=== PATIENT | female | born 1975 | race Caucasian/White ===

== ENCOUNTER → 2020-04-07 11:34 | Outpatient (REF) | payer OTHER, SELFPAY ==
--- NOTE | 2020-04-07 11:47 | ECG_ITS ---
Test Reason : CP Blood Pressure : / mmHG Vent. Rate : 088 BPM Atrial Rate : 088 BPM P-R Int : 170 ms QRS Dur : 084 ms QT Int : 366 ms P-R-T Axes : 049 011 039 degrees QTc Int : 442 ms Normal sinus rhythm Normal ECG No previous ECGs available Referred By: Victor Hugo Sams Electronically Signed By:JOSE BONNER MD
--- NOTE | 2020-04-07 12:01 | XR_ITS ---
EXAMINATION: XR CHEST CLINICAL INFORMATION: Preprocedural examination. COMPARISON: None TECHNIQUE: 2 views of the chest were obtained. FINDINGS: No significant abnormality is noted involving the heart, lungs, mediastinum, bony thorax or soft tissues. XR/XR chest 2V IMPRESSION: Unremarkable chest examination.
== END ==
LOC: HO.CARD 11:34
PROVIDERS: PCP Internal Medicine; Visit Provider Surgery
DX: Z01.818 Encounter for other preprocedural examination (principal); E11.9 Type 2 diabetes mellitus without complications
CPT/HCPCS: 71046; 93005

== ENCOUNTER → 2020-04-08 08:31 | Outpatient (BNVA) | payer OTHER, SELFPAY | PROVIDERS: PCP Internal Medicine; Referring Provider Internal Medicine; Visit Provider Surgery | DX: E66.01 Morbid (severe) obesity due to excess calories (principal); Z68.41 Body mass index [BMI] 40.0-44.9, adult; E11.65 Type 2 diabetes mellitus with hyperglycemia; E78.5 Hyperlipidemia, unspecified; I10 Essential (primary) hypertension; Z79.4 Long term (current) use of insulin; Z71.3 Dietary counseling and surveillance | CPT/HCPCS: 99212 ==

== ENCOUNTER → 2020-04-24 08:10 | Outpatient (BNVA) | payer OTHER, SELFPAY | PROVIDERS: PCP Internal Medicine; Visit Provider Surgery | DX: Z76.89 Persons encountering health services in other specified circumstances (principal) ==

== ENCOUNTER 2020-04-30 14:05 | Outpatient (REF) | payer OTHER, SELFPAY ==
--- NOTE | 2020-04-30 14:10 | MM_ITS ---
EXAMINATION: MM SCREENING DIGITAL BREAST TOMOSYNTHESIS, BILATERAL CLINICAL INFORMATION: Screening. Asymptomatic. No prior mammography. Age 45. No known family history breast cancer. The lifetime risk of breast cancer based on the Tyrer-Cuzick Model is 12%. COMPARISON: None (current study represents initial baseline exam). TECHNIQUE: Digital breast tomosynthesis is performed in both the craniocaudal and mediolateral oblique views along with computer-aided detection (CAD). Synthesized 2D images are generated from the tomosynthesis. Additional left MLO view is provided. FINDINGS: There are scattered areas of fibroglandular density (ACR BI-RADS breast composition Category b). There are no significant masses, abnormal calcifications, or other abnormalities. The skin contours are smooth. MM/MM tomosynthesis screening BI IMPRESSION: No mammographic evidence of malignancy. ASSESSMENT: BI-RADS 1: Negative RECOMMENDATION: Routine annual mammography screening. This patient's information was entered into a reminder system with a target due date for their next mammogram.
== END 2020-04-30 14:06 | disposition home or self-care (01) ==
LOC: HO.MAMMO 14:05
PROVIDERS: PCP Internal Medicine; Visit Provider Internal Medicine
DX: Z12.31 Encounter for screening mammogram for malignant neoplasm of breast (principal)
CPT/HCPCS: 77063; 77067

== ENCOUNTER 2020-05-05 14:05 | Outpatient (REF) | payer OTHER, SELFPAY ==
[2020-05-06 03:36] LABS: CT PCR NOT DETECTED (Not Detect.); NG PCR NOT DETECTED (Not Detect.)
[2020-05-11 23:34] LABS: HPV 16 RNA NOT DETECTED (NOT DETECTED); HPV mRNA E6/E7 rflx Detected (Not Detected)
== END 2020-05-05 14:06 | disposition home or self-care (01) ==
LOC: HO.LAB 14:05
PROVIDERS: PCP Internal Medicine; Visit Provider Advanced Practice Midwife
DX: Z01.419 Encounter for gynecological examination (general) (routine) without abnormal findings (principal); N90.60 Unspecified hypertrophy of vulva; Z11.51 Encounter for screening for human papillomavirus (HPV)
CPT/HCPCS: 87491; 87591; 87624; 87625; 88141; 88142

== ENCOUNTER → 2020-05-15 08:01 | Outpatient (BNVA) | payer OTHER, SELFPAY | PROVIDERS: PCP Internal Medicine; Referring Provider Internal Medicine; Visit Provider Surgery | DX: Z76.89 Persons encountering health services in other specified circumstances (principal) ==

== ENCOUNTER 2020-05-19 14:05 | Outpatient (REF) | payer OTHER, SELFPAY ==
--- NOTE | 2020-05-19 14:09 | US_ITS ---
EXAMINATION: US pelvic, LIMITED/FOLLOW UP CLINICAL INFORMATION: Unspecified hypertrophy of the vulva COMPARISON: None TECHNIQUE: Grayscale and color imaging of the labia using a linear transducer FINDINGS: The soft tissues in the right labial region appear more prominent than the left. No focal mass or fluid collection is seen. No increased vascularity is seen. US/US pelvic limited IMPRESSION: Prominent soft tissues on the right compared to the left. No mass or fluid collection seen.
== END 2020-05-19 14:06 | disposition home or self-care (01) ==
LOC: HO.US 14:05
PROVIDERS: PCP Internal Medicine; Visit Provider Advanced Practice Midwife
DX: N90.60 Unspecified hypertrophy of vulva (principal)
CPT/HCPCS: 76857

== ENCOUNTER → 2020-05-29 15:01 | Outpatient (BNVA) | payer OTHER, SELFPAY | PROVIDERS: PCP Internal Medicine; Visit Provider Advanced Practice Midwife | DX: Z76.89 Persons encountering health services in other specified circumstances (principal) ==

== ENCOUNTER → 2020-06-17 08:10 | Outpatient (BNVA) | payer OTHER, SELFPAY | PROVIDERS: PCP Internal Medicine; Visit Provider Surgery | DX: Z76.89 Persons encountering health services in other specified circumstances (principal) ==

== ENCOUNTER → 2020-06-24 08:43 | Outpatient (BNVA) | payer OTHER, SELFPAY | PROVIDERS: PCP Internal Medicine; Visit Provider Nurse Practitioner Gerontology | DX: Z76.89 Persons encountering health services in other specified circumstances (principal) ==

== ENCOUNTER 2020-07-06 10:13 | Outpatient (REF) | payer OTHER, SELFPAY | END 2020-07-06 10:14 | disposition home or self-care (01) | LOC: HO.LAB 10:13 | PROVIDERS: PCP Internal Medicine; Visit Provider Obstetrics & Gynecology | DX: R87.610 Atypical squamous cells of undetermined significance on cytologic smear of cervix (ASC-US) (principal); R87.810 Cervical high risk human papillomavirus (HPV) DNA test positive | CPT/HCPCS: 57454; 88305 ==

== ENCOUNTER → 2020-07-29 08:29 | Outpatient (BNVA) | payer OTHER, SELFPAY | PROVIDERS: PCP Internal Medicine; Visit Provider Surgery ==

== ENCOUNTER 2020-08-12 17:39 | Emergency (ER) | payer OTHER, SELFPAY ==
[2020-08-12 18:21] VITALS: BP 222/90; PULSE 78; RESP 18; TEMP 36.4; O2SAT 100; BMI 34.8
--- NOTE | 2020-08-12 18:23 | ECG_ITS ---
Test Reason : HIGH BP Blood Pressure : / mmHG Vent. Rate : 091 BPM Atrial Rate : 091 BPM P-R Int : 150 ms QRS Dur : 084 ms QT Int : 374 ms P-R-T Axes : 027 005 010 degrees QTc Int : 460 ms Normal sinus rhythm Normal ECG When compared with ECG of 07-APR-2020 11:49, Nonspecific T wave abnormality now evident in Inferior leads Referred By: Generic ED Physician Electronically Signed By:QUINN ROPER
[2020-08-12 19:07] LABS: Basophils Absolute Auto 0.1 X10*3/uL (0.0-0.2); Basophils Percent Auto 0.4 % (0-2); Eosinophils Absolute Auto 0.8 X10*3/uL (0.0-0.4); Eosinophils Percent Auto 4.5 % (0-4); Hematocrit 34.7 % (37-47); Hemoglobin 10.3 g/dl (12.0-16.0); Imm Gran Abs Auto 0.07 X10*3/uL (0.00-0.03); Imm Gran Pct Auto 0.4 % (0.0-0.4); Lymphocytes Percent Auto 37.4 % (20-40); MANUAL DIFF FLAG SCAN; Mean Corpuscular HGB Conc 29.7 g/dl (31.0-35.0); Mean Corpuscular Hemoglobin 21.8 pg (27.0-33.0); Mean Corpuscular Volume 73.4 fL (80-98); Mean Platelet Volume 8.9 fL (9.4-12.3); Monocytes Absolute Auto 0.9 X10*3/uL (0.1-1.2); Monocytes Percent Auto 5.2 % (2-11); Neutrophils Absolute Auto 8.8 X10*3/uL (2.0-8.3); Neutrophils Percent Auto 52.1 % (45-73); Platelet Count 520 X10*3/uL (160-400); Red Blood Count 4.73 X10*6/uL (4.20-5.50); Red Cell Distribution Width 16.4 % (11.0-16.0); SCAN SMEAR FLAG 1; White Blood Count 16.9 X10*3/uL (4.8-10.8)
[2020-08-12 19:08] VITALS: BP 107/72; PULSE 88; RESP 12; O2SAT 95
[2020-08-12 19:09] LABS: Lymphocytes Absolute Auto 6.3 X10*3/uL (1.2-4.9)
[2020-08-12 19:19] LABS: Glucose, Whole Blood 139 mg/dL (60-115)
[2020-08-12 19:28] LABS: Anion Gap 14 (12-20); Blood Urea Nitrogen 14 mg/dL (9-16); Calcium 9.4 mg/dL (8.4-10.2); Carbon Dioxide 24 mmol/L (22-29); Chloride 100 mmol/L (96-108); Creatinine Clr Calc Pharmacy 95.3; Estimated Glomerular Filt Rate > 60; Glucose Random 126 mg/dL (60-115); Potassium 3.5 mmol/L (3.3-5.1); Sodium 134 mmol/L (135-145)
[2020-08-12 19:36] LABS: SLIDE REVIEW VERIFIED
--- NOTE | 2020-08-12 19:43 | ED_ITS ---
HPI - General Adult General Chief complaint: General Medical Stated complaint: HIGH BP Time Seen by Provider: 08/12/20 19:43 Source: patient Mode of arrival: ambulatory Limitations: no limitations History of Present Illness HPI narrative: Very pleasant 45-year-old female presenting ambulatory via triage she has a history of PCOS, hypothyroidism, dyslipidemia, diabetes, hypertension and obesity and surgical history of right hand surgery as well as cholecystectomy she states she has been checking her blood pressure at home were past several days and she has had readings that her high for her as high as 170/90 and she is on triple antihypertensive therapy however couple of weeks ago she did not get a chance to fill when the prescriptions and could be the reason why her blood pressure is elevated. States she was overall doing okay did have slight headache and given the elevated readings and this slight headache she called her primary care doctor and she was told to come to the emergency room. States the headache is very mild and typical in nature for her and there is no associated photophobia as or dizziness or chest pain or shortness of breath. There is no recent illness. She does report that she checks her blood pressure with our for machine and her readings have been somewhat fluctuating or past couple days. Additionally, upon arrival she had protocol EKG and lab work done in the triage and while she was getting her blood drawn she became diaphoretic and sweaty and had a near syncopal episode while sitting in the lab chair. She does report lack of p.o. intake prior to coming here today. Otherwise there was no prodromal symptoms or any chest pain, shortness of breath, abdominal pain, nausea, vomiting, lower extremity swelling. Onset (ago): day(s) Radiation: non-radiation Exacerbating factors: none Treatments prior to arrival: none Related Data Home Medications Medication Instructions Recorded Confirmed albuterol sulfate 90 mcg/actuation INHALATION 03/25/20 07/01/20 aerosol inhaler blood sugar diagnostic #10 ea 03/25/20 07/01/20 clonazepam 1 mg tablet 1 mg PO BEDTIME PRN 03/25/20 07/01/20 duloxetine 30 mg capsule,delayed 30 mg PO DAILY 03/25/20 07/01/20 release duloxetine 60 mg capsule,delayed 60 mg PO DAILY 03/25/20 07/01/20 release lancets 28 gauge #100 ea 03/25/20 07/01/20 lisdexamfetamine 60 mg capsule 60 mg PO QAM 03/25/20 07/01/20 metformin 1,000 mg tablet 1,000 mg PO BID 03/25/20 07/01/20 omeprazole 20 mg capsule,delayed 20 mg PO BID 03/25/20 07/01/20 release pen needle, diabetic 32 gauge x #50 ea 03/25/20 07/01/20 5/32 aripiprazole 20 mg tablet 25 mg PO QAM tab 06/24/20 07/01/20 Previous Rx's Medication Instructions Recorded fenofibrate micronized 134 mg 134 mg PO DAILY #90 cap 03/23/20 capsule omega-3 fatty acids 1,000 mg 2,000 mg PO BID 30 Days #120 cap 03/25/20 capsule atenolol 50 mg-chlorthalidone 25 1 tab PO DAILY #90 tab 04/20/20 mg tablet benazepril 40 mg tablet 40 mg PO DAILY #90 tab 04/20/20 montelukast 10 mg tablet 10 mg PO DAILY #90 tab 04/20/20 levothyroxine 88 mcg tablet 88 mcg PO DAILY #90 tab 05/23/20 insulin degludec 200 unit/mL (3 100 unit SUBCUT DAILY 30 Days #15 06/14/20 mL) subcutaneous pen ml insulin lispro 100 unit/mL See Rx Instructions SUBCUT TID 30 06/24/20 subcutaneous pen Days #30 ml norethindrone acetate 1 mg-ethinyl 1 tab PO DAILY #63 tab 06/24/20 estradiol 20 mcg tablet simvastatin 20 mg tablet 20 mg PO BEDTIME #90 tab 06/24/20 amlodipine 5 mg tablet 5 mg PO DAILY #90 tab 07/02/20 liraglutide 0.6 mg/0.1 mL (18 mg/3 1.8 mg SUBCUT DAILY #9 ml 07/12/20 mL) subcutaneous pen injector cyanocobalamin (vitamin B-12) 1,000 mcg PO DAILY #30 tab 07/13/20 1,000 mcg tablet,extended release flash glucose sensor 1 ea TOPICAL .COMPLEX 28 Days #2 07/14/20 kit Allergies Allergy/AdvReac Type Severity Reaction Status Date / Time Sulfa (Sulfonamide Allergy Unknown HIVES Verified 07/06/20 10:26 Antibiotics) [SULFA (SULFONAMIDE ANTIBIOTICS)] Review of Systems Review of Systems: Constitutional: No Weight loss, No Fever, No Chills, No Night Sweats, No Fatigue, No Malaise ENT/Mouth: No Hearing loss, No Ear Pain, No Nasal Congestion, No Sinus Pain, No Hoarseness, No sore throat, No Rhinorrhea, No Swallowing Difficulty Eyes: No Eye Pain, No Swelling, No Redness, No Foreign Body, No Discharge, No Vision Changes Cardiovascular: No Chest Pain, No SOB, No Dyspnea on Exertion, No Orthopnea, No Edema, No Palpitations Respiratory: No Cough, No Sputum, No Wheezing, No Dyspnea Gastrointestinal: No Nausea, No Vomiting, No Diarrhea, No Constipation, No abdominal Pain, No Hematochezia, No Melena Genitourinary: no irregular bleeding, No Dysuria, No Urinary Frequency, No Hematuria, No Urinary Incontinence, No Urgency, No Flank Pain, No Urinary Flow Changes, No Hesitancy Musculoskeletal: No joint pain, No Myalgias, No Joint Swelling Skin: No Skin Lesions, No rash Neuro: No Weakness, No Numbness, No Paresthesias, No Loss of Consciousness, No Dizziness, No Headache Psych: No Social Issues Heme/Lymph: No Bruising, No Bleeding,No Lymphadenopathy Endocrine: No Polyuria, No Polydipsia, No Temperature Intolerance Yes all other systems are reviewed and are negative Neurologic: Reports Abnormal speech present [facility] Past Medical History Medical History BMI 40.0-44.9, adult Depression Diabetes mellitus with hyperglycemia Dyslipidemia Enlargement of labia Essential hypertension Hypertriglyceridemia Hypothyroidism PCOS (polycystic ovarian syndrome) Potential exposure to STD Surgical History Hx of cholecystectomy Hx of hand surgery Hx of sinus surgery Morbid (severe) obesity due to excess calories Family History Family History Father CVD (cardiovascular disease) Diabetes type 2, uncontrolled Alzheimer's dementia Mother HTN (hypertension) Brother No problems noted. Social History Social History Household Members: Other Alcohol intake: never Smoking Status: Never smoker Advance Directives: No Advance Directives Information Provided: Yes Gender identity: female Physical Exam Vital Signs: Vital Signs: Last Vital Signs Temp 97.6 F 08/12/20 18:21 Pulse 88 08/12/20 19:08 Resp 12 08/12/20 19:08 BP 107/72 08/12/20 19:08 Pulse Ox 95 08/12/20 19:08 Body Mass Index 34.8 Reviewed Const: Other: Says sitting up agree to me with a smile. General: cooperative and healthy appearing; No acute distress or intoxicated appearing Nutritional Appearance: average body habitus Orientation/consciousness: patient oriented x3 HENMT: Head: Yes normal to inspection Ears: hearing grossly normal bilaterally Eyes: General: appearance normal, both eyes and all related structures Visual Pack: normal visual pack by confrontation Alignment and Position: alignment normal Pupils: Equal, round and reactive pupils present Neck: Neck: Yes normal visual inspection, Yes no meningeal signs, No positive Brudzinski's sign, No positive Kernig's sign and No tender Thyroid: Thyroid normal Chest: Chest palpation & inspection: normal inspection of the chest Resp: Effort & Inspection: normal respiratory effort Auscultation: clear to auscultation bilaterally Cardio: Jugular venous distension: no JVD Rhythm: regular rhythm Heart sounds: S1 normal heart sound present and S2 normal heart sound present GI: Inspection: Yes normal to inspection Palpation (GI): Soft to palpation Percussion: Yes normal to percussion Auscultation: normal bowel sounds : General: Yes no CVA tenderness Back/Spine/Pelvis: Back: no CVA tenderness Skin: General skin exam: no rashes or lesions noted Neuro: General: patient oriented x3, moves all extremities, Normal light touch and pain sensation, no meningeal signs, no focal motor deficits and CN's II-XI intact bilaterally Cranial nerves: Yes CN's II-XII intact bilaterally, Yes Facial sensation intact/muscles of mastication intact, Yes Intact sense of smell present, Yes Equal, round and reactive pupils present, Yes Normal accommodation reflex present, Yes Bilaterally intact EOM present, Yes Nystagmus not present, Yes Normal facial strength present, Yes Midline tongue present, Yes Normal gag reflex present and Yes Ability to bilaterally elevate shoulders present Cognition (Neuro): normal cognition Speech: Abnormal speech present Gait exam (Neuro): Normal gait present Motor exam (neuro): 5/5 motor strength present throughout Sensory Exam: Normal double simultaneous stimulation for sensation Extrem: General: Yes normal to inspection Psych: Appearance: well kempt NIH Stroke Scale Internal: Initial- Upon Arrival Level of Consciousness: Alert Level of Consciousness Questions: Answers both questions correctly Level of Consciousness Commands: Performs both tasks correctly Best Gaze: Normal Visual: No visual loss Facial Palsy: Normal Motor Arm (Right): No drift Motor Arm (Left): No drift Motor Leg (Right): No drift Motor Leg (Left): No drift Limb Ataxia: Absent Sensory: Normal Best Language: No aphasia Dysarthia: Normal Extinction and Inattention: No abnormality Score: 0 Course Reevaluation(s) Reevaluation #1: Patient was brought in from the waiting room directly after having the blood work and having a near syncopal episode in the stretcher did have 1 low reading and subsequently blood pressure readings have been 130 over 70s, her initial blood pressure was documented very elevated at 222/90 however due to her body over this it was done on her forearm likely with the inappropriate cuff size and given that the manual blood pressure on the bilateral upper extremities as well as now the bedside monitor are all correlating with a blood pressure of 130s over 70s. At this point she is res ting comfortably without any focal complaints or neurological findings. Labs EKG in process. Reevaluation #2: There was significant artifact on the initial EKG repeat EKG nondiagnostic. Her labs are overall stable. She does not offer any medical com plaints and has been observed in the ED for almost 3 hours with consistently stable pressure. At this time I will defer on altering any of the blood pressure medication regiment which she is on amlodipine, Kyree and beta-zaid. Proper home blood pressure techniques were reviewed with her, she will keep a log of her blood pressures and follow up closely with her primary care doctor for recheck and further pharmacological management and alternation if needed. Ambulatory steady gait. Medical Decision Making MDM Narrative Medical decision making narrative: In review 45-year-old female presenting ambulatory via triage she has a history of PCOS, hypothyroidism, dyslipidemia, diabetes, hypertension and obesity and surgical history of right hand surgery as well as cholecystectomy initially presenting for elevated blood pressure with light headache which is typical for her comes by the direction of her primary care doctor and having a vasovagal near-syncope in the phlebotomy chair from having blood work drawn. Patient has been observed in the ED for several hours she has not had any focal neurological findings or specific complaints. Her blood pressure readings have been stable with systolic in the high 130s and diastolic in the 70s. She has not required any intervention for blood pressure management here. Her workup is overall unrevealing she does have at baseline leukocytosis chronically which she knows about however no signs of acute infectious pathology at this time. Her blood pressure readings at home can be multifactorial i.e. forearm blood pressure, technique, as well as medication compliance. This was reviewed with her in detail as well as proper blood pressure technique. Will be discharged home with close follow up with her primary care. Lab Data Result diagrams: 08/12/20 18:59 08/12/20 18:59 Labs: Lab Results 08/12/20 08/12/20 08/12/20 Range/Units 18:59 18:59 19:09 WBC 16.9 H (4.8-10.8) X10*3/uL RBC 4.73 (4.20-5.50) X10*6/uL Hgb 10.3 L (12.0-16.0) g/dl Hct 34.7 L (37-47) % MCV 73.4 L (80-98) fL MCH 21.8 L (27.0-33.0) pg MCHC 29.7 L (31.0-35.0) g/dl RDW 16.4 H (11.0-16.0) % Plt Count 520 H (160-400) X10*3/uL MPV 8.9 L (9.4-12.3) fL Immature Gran % (Auto) 0.4 (0.0-0.4) % Neut % (Auto) 52.1 (45-73) % Lymph % (Auto) 37.4 (20-40) % [place] % (Auto) 5.2 (2-11) % Eos % (Auto) 4.5 H (0-4) % Baso % (Auto) 0.4 (0-2) % Lymph # (Auto) 6.3 H (1.2-4.9) X10*3/uL [place] # (Auto) 0.9 (0.1-1.2) X10*3/uL Eos # (Auto) 0.8 H (0.0-0.4) X10*3/uL Baso # (Auto) 0.1 (0.0-0.2) X10*3/uL Abs Immat Gran (auto) 0.07 H (0.00-0.03) X10*3/uL Absolute Neuts (auto) 8.8 H (2.0-8.3) X10*3/uL Absolute Nucleated RBC 0.000 (0.0-0.012) X10*3/uL Nucleated RBC % (auto) 0.0 (0.0-0.2) /100WBC Smear Tech's Comments VERIFIED Sodium 134 L (135-145) mmol/L Potassium 3.5 (3.3-5.1) mmol/L Chloride 100 (96-108) mmol/L Carbon Dioxide 24 (22-29) mmol/L Anion Gap 14 (12-20) BUN 14 (9-16) mg/dL Creatinine 0.88 (0.5-1.4) mg/dL Estim Creat Clear Calc 95.3 Estimated GFR > 60 POC Glucose 139 H (60-115) mg/dL Random Glucose 126 H (60-115) mg/dL Calcium 9.4 (8.4-10.2) mg/dL Troponin I High Sens (<3.5-17.0) ng/L 08/12/20 Range/Units 19:15 WBC (4.8-10.8) X10*3/uL RBC (4.20-5.50) X10*6/uL Hgb (12.0-16.0) g/dl Hct (37-47) % MCV (80-98) fL MCH (27.0-33.0) pg MCHC (31.0-35.0) g/dl RDW (11.0-16.0) % Plt Count (160-400) X10*3/uL MPV (9.4-12.3) fL Immature Gran % (Auto) (0.0-0.4) % Neut % (Auto) (45-73) % Lymph % (Auto) (20-40) % [place] % (Auto) (2-11) % Eos % (Auto) (0-4) % Baso % (Auto) (0-2) % Lymph # (Auto) (1.2-4.9) X10*3/uL [place] # (Auto) (0.1-1.2) X10*3/uL Eos # (Auto) (0.0-0.4) X10*3/uL Baso # (Auto) (0.0-0.2) X10*3/uL Abs Immat Gran (auto) (0.00-0.03) X10*3/uL Absolute Neuts (auto) (2.0-8.3) X10*3/uL Absolute Nucleated RBC (0.0-0.012) X10*3/uL Nucleated RBC % (auto) (0.0-0.2) /100WBC Smear Tech's Comments Sodium (135-145) mmol/L Potassium (3.3-5.1) mmol/L Chloride (96-108) mmol/L Carbon Dioxide (22-29) mmol/L Anion Gap (12-20) BUN (9-16) mg/dL Creatinine (0.5-1.4) mg/dL Estim Creat Clear Calc Estimated GFR POC Glucose (60-115) mg/dL Random Glucose (60-115) mg/dL Calcium (8.4-10.2) mg/dL Troponin I High Sens < 3.5 (<3.5-17.0) ng/L ECG Data Interpretation: 1. Normal sinus rhythm Rate 91 No ectopy Significant artifact and tremor When compared with ECG of 07-APR-2020 11:49, ?Nonspecific T wave abnormality now evident in Inferior leads 2. Repeat EKG Normal sinus rhythm Rate 70 Significantly less artifact without any evidence of T-wave abnormalities No significant change from a 08/01 19. Discharge Plan Discharge Clinical Impression: Hypertension, Vasovagal near syncope Patient Disposition: Home, Self-Care Instructions: Hypertension (ED), Near Syncope (ED) Additional Instructions: At this time your blood pressure has normalized without intervention in the ED Please check your blood pressure at the same time on a daily basis and keep log Preferred method for checking blood pressure is to have your both feet touch in the ground and done on the upper portion of the arm while your arm is across her chest in a relaxed manner. Do not talk or move all the blood pressure is being taking by the machine. The forearm she can give false elevated readings. Please return if any concerns or worsening symptoms otherwise follow-up as planned Thank you Prescriptions: No Action fenofibrate micronized 134 mg capsule 134 mg PO DAILY Qty: 90 RF: 3 atenolol-chlorthalidone 50-25 mg tablet 1 tab PO DAILY Qty: 90 RF: 3 benazepril 40 mg tablet 40 mg PO DAILY Qty: 90 RF: 3 montelukast 10 mg tablet 10 mg PO DAILY Qty: 90 RF: 3 levothyroxine 88 mcg tablet 88 mcg PO DAILY Qty: 90 RF: 3 insulin degludec 200 unit/mL (3 mL) insulin pen 100 unit subcut DAILY 30 Days Qty: 15 RF: 1 simvastatin 20 mg tablet 20 mg PO BEDTIME Qty: 90 RF: 3 norethindrone ac-eth estradiol [07/01 (21)] 1-20 mg-mcg tablet 1 tab PO DAILY Qty: 63 RF: 3 amlodipine 5 mg tablet 5 mg PO DAILY Qty: 90 RF: 3 liraglutide [Victoza 3-German] 0.6 mg/0.1 mL (18 mg/3 mL) pen injector 1.8 mg subcut DAILY Qty: 9 RF: 5 cyanocobalamin (vitamin B-12) 1,000 mcg tablet extended release 1,000 mcg PO DAILY Qty: 30 RF: 6 flash glucose sensor [FreeStyle Amberly 14 Day Sensor] Kit 1 ea topical .COMPLEX 28 Days Qty: 2 RF: 11 duloxetine 30 mg capsule,delayed release(DR/EC) 30 mg PO DAILY RF: 0 metformin 1,000 mg tablet 1,000 mg PO BID RF: 0 clonazepam 1 mg tablet 1 mg PO BEDTIME PRNRF: 0 Vyvanse 60 mg capsule 60 mg PO QAM RF: 0 duloxetine 60 mg capsule,delayed release(DR/EC) 60 mg PO DAILY RF: 0 (DME) pen needle, diabetic 32 gauge x 5/32 needle See Rx Instructions ea subcut DAILY Qty: 50 RF: 0 albuterol sulfate 90 mcg/actuation HFA aerosol inhaler inhalation RF: 0 (DME) lancets 28 gauge misc See Rx Instructions lancet topical QID Qty: 100 RF: 0 omeprazole 20 mg capsule,delayed release(DR/EC) 20 mg PO BID RF: 0 (DME) FreeStyle Lite Strips Strip See Rx Instructions strip .ROUTE .MEDSUPPLY Qty: 10 RF: 0 omega-3 fatty acids 1,000 mg capsule 2,000 mg PO BID 30 Days Qty: 120 RF: 3 aripiprazole 20 mg tablet 25 mg PO QAM RF: 0 insulin lispro [Humalog KwikPen Insulin] 100 unit/mL insulin pen See Rx Instructions subcut TID 30 Days Qty: 30 RF: 5 Referrals: Maria Esther Real MD [Primary Care Provider] - 1 week Interventions: ED Discharge Assessment Last Done: 08/12/20 21:04 Discharge Date/Time: 08/12/20 21:12
[2020-08-12 19:48] LABS: Troponin-I High Sensitivity < 3.5 ng/L (<3.5-17.0)
== END 2020-08-12 21:12 | disposition home or self-care (01) ==
PROVIDERS: Emergency Provider Emergency Medicine; PCP Internal Medicine
DX: I10 Essential (primary) hypertension (principal); R55 Syncope and collapse; E11.9 Type 2 diabetes mellitus without complications; E28.2 Polycystic ovarian syndrome; E78.5 Hyperlipidemia, unspecified; E66.9 Obesity, unspecified; Z79.4 Long term (current) use of insulin; Z79.899 Other long term (current) drug therapy
CPT/HCPCS: 36415; 80048; 82947; 84484; 85025; 85060; 93005; 99283; 99284

== ENCOUNTER → 2020-08-19 08:10 | Outpatient (BNVA) | payer OTHER, SELFPAY | PROVIDERS: PCP Internal Medicine; Visit Provider Surgery ==

== ENCOUNTER → 2020-10-20 12:48 | Outpatient (BNVA) | payer OTHER, SELFPAY | PROVIDERS: PCP Internal Medicine; Visit Provider Nurse Practitioner Gerontology | DX: E11.65 Type 2 diabetes mellitus with hyperglycemia (principal); Z79.4 Long term (current) use of insulin; I10 Essential (primary) hypertension; E78.5 Hyperlipidemia, unspecified; E78.1 Pure hyperglyceridemia; E66.01 Morbid (severe) obesity due to excess calories; Z68.41 Body mass index [BMI] 40.0-44.9, adult | CPT/HCPCS: 82947; 99212 ==

== ENCOUNTER 2020-11-24 10:00 | Outpatient (RCR) | payer OTHER, SELFPAY ==
--- NOTE | 2020-11-11 14:59 | MHC.PT.EP ---
[facility] [place] Office [place] Office [place] Office [address] [phone] F: [phone] F: [phone] F: [phone] F: [phone] Physical Therapy Plan of Care Date of Evaluation: Date of Surgery: NA Diagnosis: RIGHT SHOULDER PAIN (KP) Assessment: Ella is a pleasant 45 yo female who presents with S/S consistent with right shoulder impingement syndrome. Impairments include decreased shoulder ROM, decreased strength, altered GH and Scap/thor posture and positioning, decreased soft tissue mobility and increased pain. Functional limitations include decreased abiltiy to perform lifting, reaching, pushing and pulling. She reports decreased ability to perform homemaking and self care tasks, decreased ability to participate in recreation and fitness activities. Disrupted sleep. Frequency and Duration: The patient will be seen 2 x week for 5 weeks Short Term Goals: initiate HEP and promote self management of symptoms Skilled Nursing Goals: Full, pain free ROM in 5 weeks Full UE strength, pain free in 5 weeks To perform computer and work tasks without restriction and pain no greater than 2/10 in [address] at minimum of 5# into cabinet at shoulder height in 5 weeks Treatment Plan: Modalities to reduce pain, spasms and effusion. Manual therapy to restore motion and function. Therapeutic exercise to improve strength and flexibility. Neuromuscular re-education for posture and balance. Therapeutic activities to return to functional activities of daily living. Electronically signed by: Tonya Hough PT, DPT Please sign and return to therapist. Thank you for your referral.
--- NOTE | 2021-01-15 08:52 | MHC.PT.DC ---
[facility] [place] Office [place] Office [place] Office [address] Liu [place] [address] [phone] F: [phone] F: [phone] F: [phone] F: [phone] Physical Therapy Discharge Report Diagnosis: RIGHT SHOULDER PAIN (KP) Date of Surgery: NA Date of Evaluation: 11/11/20 Date of Discharge: 11/26/20 Treatments to Date: 4 Cancellations to Date: 5 No Shows to Date: 0 Discharge Status: Patient Elected to Stop Discharge Summary: Pt cancelled multiple appointments, including last two scheduled visits. Current status is unknown. Electronically signed by: Tonya Hough PT, DPT Please sign and return to therapist. Thank you for your referral.
== END 2021-01-15 08:53 | disposition home or self-care (01) ==
LOC: HO.PT 10:00
PROVIDERS: PCP Internal Medicine; Visit Provider Internal Medicine
DX: M25.511 Pain in right shoulder (principal)
CPT/HCPCS: 97033; 97110; 97112; 97140; 97161; 97535

== ENCOUNTER 2020-11-27 07:57 | Outpatient (REF) | payer OTHER, SELFPAY ==
--- NOTE | ~2020-11-27 | XR_ITS ---
EXAMINATION: XR SHOULDER, RIGHT CLINICAL INFORMATION: Four views. COMPARISON: None TECHNIQUE: AP external rotation, Grashey, scapular Y, and axillary views of the right shoulder. FINDINGS: The glenohumeral joint space is maintained normal. There is loss of right AC joint space with periarticular spurring. No visible acute fracture, dislocation or subluxation seen. There is a small bone fragment along the inferior glenoid, likely old avulsion injury. The soft tissues are unremarkable. XR/XR shoulder RT min 2V IMPRESSION: Mild degenerative changes right AC joint. No visible acute fracture or dislocation seen.
== END 2020-11-27 07:58 | disposition home or self-care (01) ==
LOC: HO.XRAY 07:57
PROVIDERS: PCP Internal Medicine; Visit Provider Physician Assistant
DX: M25.511 Pain in right shoulder (principal); M75.41 Impingement syndrome of right shoulder
CPT/HCPCS: 20610; 73030; 99202; J1040

== ENCOUNTER → 2020-12-30 09:46 | Outpatient (BNVA) | payer OTHER, SELFPAY | PROVIDERS: PCP Internal Medicine; Visit Provider Nurse Practitioner Gerontology | DX: E11.65 Type 2 diabetes mellitus with hyperglycemia (principal); E11.21 Type 2 diabetes mellitus with diabetic nephropathy; I10 Essential (primary) hypertension; E78.5 Hyperlipidemia, unspecified; E03.9 Hypothyroidism, unspecified; E66.01 Morbid (severe) obesity due to excess calories; E78.1 Pure hyperglyceridemia; Z68.41 Body mass index [BMI] 40.0-44.9, adult; Z88.2 Allergy status to sulfonamides; Z79.4 Long term (current) use of insulin; Z79.899 Other long term (current) drug therapy | CPT/HCPCS: 82947; 99212 ==

== ENCOUNTER → 2021-01-08 09:20 | Outpatient (BNVA) | payer OTHER, SELFPAY | PROVIDERS: Visit Provider Physician Assistant | DX: M75.41 Impingement syndrome of right shoulder (principal) | CPT/HCPCS: 99212 ==

== ENCOUNTER 2021-01-19 15:33 | Outpatient (REF) | payer OTHER, SELFPAY ==
--- NOTE | ~2021-01-19 | MR_ITS ---
EXAMINATION: MR SHOULDER WITHOUT CONTRAST, RIGHT CLINICAL INFORMATION: Impingement syndrome of the right shoulder. Right shoulder pain. Limited range of motion with symptoms x 4 months. COMPARISON: Right shoulder radiograph dated 11/27/2020 TECHNIQUE: MRI of the shoulder without contrast was performed on a high-field scanner. FINDINGS: ROTATOR CUFF: There is mild supraspinatus tendinosis. Infraspinatus is normal. There is more moderate subscapularis tendinosis with undersurface fraying of the more superior fibers. No appreciable rotator cuff tears. No muscle atrophy or fatty infiltration. BICEPS: Mild biceps tendinosis at the groove entrance and more focal tendinosis at the origin near the labral anchor. No tears. CORACOACROMIAL ARCH: The undersurface of the acromion is flat with no subacromial spur. [id number] acromioclavicular osteoarthritis. Trace subacromial-subdeltoid bursal fluid. LABRUM/CAPSULE: There is ill-defined increased signal in the undersurface of the superior labrum which is most concerning for a type I SLAP tear (undersurface fraying). No discrete tears are identified. Joint capsule is mildly thickened and edematous at the axillary pouch and, to a greater extent, the rotator interval. GLENOHUMERAL JOINT/MARROW: Small glenoid osteophyte posteriorly. There is mild adjacent chondral fissuring at the glenoid rim posteriorly and superiorly. Humeral articular cartilage appears normal. No fracture. Trace joint effusion. MR/MR shoulder RT wo con IMPRESSION: 1. Moderate subscapularis and mild supraspinatus tendinosis. No rotator cuff tears. 2. Qjxj-rk-gxcqyzyu biceps tendinosis, more notably at the labral anchor. No tears. 3. Undersurface fraying of the superior labrum (type III SLAP tear). 4. Mild capsular thickening and edema at the joint, more notably at the rotator interval. Though not specific, this appearance can be seen in the setting of adhesive capsulitis. 5. Minimal glenohumeral and thpw-[id number] acromioclavicular osteoarthritis.
== END 2021-01-19 15:34 | disposition home or self-care (01) ==
LOC: HO.MRI 15:33
PROVIDERS: PCP Internal Medicine; Visit Provider Physician Assistant
DX: M75.41 Impingement syndrome of right shoulder (principal)
CPT/HCPCS: 73221

== ENCOUNTER → 2021-01-29 09:17 | Outpatient (BNVA) | payer OTHER, SELFPAY | PROVIDERS: PCP Internal Medicine; Visit Provider Physician Assistant | DX: M75.41 Impingement syndrome of right shoulder (principal); M25.511 Pain in right shoulder | CPT/HCPCS: 20610; 99212; J1040 ==

== ENCOUNTER 2021-04-02 15:28 | Outpatient (REF) | payer OTHER, SELFPAY | END 2021-04-02 15:29 | disposition home or self-care (01) | LOC: HO.LAB 15:28 | PROVIDERS: Visit Provider Physician Assistant Medical | DX: R30.0 Dysuria (principal) | CPT/HCPCS: 87086; 87088; 87186 ==

== ENCOUNTER 2021-04-03 11:14 | Outpatient (REF) | payer OTHER, SELFPAY | END 2021-04-03 11:15 | disposition home or self-care (01) | LOC: HO.LNP 11:14 | PROVIDERS: Visit Provider Physician Assistant Medical | DX: Z13.89 Encounter for screening for other disorder (principal) | CPT/HCPCS: 87086 ==

== ENCOUNTER 2021-04-12 11:27 | Outpatient (REF) | payer OTHER, SELFPAY ==
[2021-04-12 14:02] LABS: Appearance Urine CLOUDY; Color Urine DK YELLOW; Glucose Urine UA NEG (NEG); Leukocyte Esterase Urine 2+ (NEG); Nitrite Urine POS (NEG); UACC Culture Trigger YES; Urine Blood 3+ (NEG); Urine Ketones 5 MG/DL (NEG); Urine Protein 2+ MG/DL (NEG-TRACE)
[2021-04-12 14:32] LABS: Mucus Urine 1+ /LPF; Squamous Epithelial Cell Urine 3+ /LPF
[2021-04-12 14:33] LABS: Bacteria Urine 2+ /LPF
== END 2021-04-12 11:28 | disposition home or self-care (01) ==
LOC: HO.HMGCLDS 11:27
PROVIDERS: PCP Internal Medicine; Visit Provider Physician Assistant Medical
DX: N39.0 Urinary tract infection, site not specified (principal)
CPT/HCPCS: 81001; 81003; 87086; 87088; 87186

== ENCOUNTER 2021-04-20 14:47 | Inpatient (IN) | payer OTHER, SELFPAY ==
--- NOTE | ~2021-04-20 | US_ITS ---
EXAMINATION: US RETROPERITONEAL LIMITED (RENAL ONLY) CLINICAL INFORMATION: UTI. COMPARISON: Ultrasound of the abdomen February 03, 2020 TECHNIQUE: Grayscale ultrasound and color Doppler exam of kidneys FINDINGS: RIGHT KIDNEY: 13 x 5.3 x 5 cm (SAG x AP x TRV). The kidney is normal in size, contour, and echogenicity. Renal cortical thickness is normal. No calculi or focal parenchymal lesions. No hydronephrosis. LEFT KIDNEY: 12.7 x 6.1 x 5.2 cm (SAG x AP x TRV). The kidney is normal in size, contour, and echogenicity. Renal cortical thickness is normal. No calculi or focal parenchymal lesions. No hydronephrosis. US/US renal BI IMPRESSION: Normal ultrasound of the kidneys..
[2021-04-20 15:32] VITALS: BP 155/84; PULSE 91; RESP 20; TEMP 36.1; O2SAT 98; BMI 43.2
[2021-04-20 16:06] LABS: Appearance Urine CLOUDY; Color Urine YELLOW; Glucose Urine UA NEG (NEG); Leukocyte Esterase Urine 3+ (NEG); Nitrite Urine NEG (NEG); PH 6.5 (5.0-8.0); UACC Culture Trigger YES; Urine Blood TRACE (NEG); Urine Ketones NEG (NEG); Urine Protein 1+ MG/DL (NEG-TRACE)
[2021-04-20 16:12] LABS: Amorphous Sediment Urine TRACE /LPF; Bacteria Urine 2+ /LPF; Mucus Urine 1+ /LPF; Renal Epithelial Cells Urine TRACE /LPF; Squamous Epithelial Cell Urine 2+ /LPF
[2021-04-20 16:13] LABS: RBC Urine 0-2 /HPF (0); Urine Talc Crystals TRACE /LPF
--- NOTE | 2021-04-20 18:13 | ED.FEMALEGU ---
HPI - Female Genitourinary General Chief complaint: Urogenital-Female Stated complaint: antibiotic resistant uti Time Seen by Provider: 04/20/21 16:03 Source: patient Mode of arrival: ambulatory Limitations: no limitations History of Present Illness HPI Narrative: Patient diabetic with UTI symptoms for last 2 weeks been seen by primary care doctor started on Macrobid and changed to cefpodoxime still not feeling good urine culture done on 04/12 showed grew ESBL sensitive to ertapenem his PCP sent the patient here. Patient usually does not get any UTI last UTI was 15 years ago. Blood sugar is well controlled no fever no chills no back flank pain slight nausea no vomiting no significant abdominal pain Related Data Home Medications Medication Instructions Recorded Confirmed albuterol sulfate 90 mcg/actuation INHALATION 03/25/20 04/02/21 aerosol inhaler blood sugar diagnostic #10 ea 03/25/20 04/02/21 clonazepam 1 mg tablet 1 mg PO BEDTIME PRN 03/25/20 04/02/21 duloxetine 30 mg capsule,delayed 30 mg PO DAILY 03/25/20 04/02/21 release duloxetine 60 mg capsule,delayed 60 mg PO DAILY 03/25/20 04/02/21 release lancets 28 gauge #100 ea 03/25/20 04/02/21 lisdexamfetamine 60 mg capsule 60 mg PO QAM 03/25/20 04/02/21 omeprazole 20 mg capsule,delayed 20 mg PO BID 03/25/20 04/02/21 release aripiprazole 10 mg tablet 10 mg PO DAILY 01/29/21 Previous Rx's Medication Instructions Recorded atenolol 50 mg-chlorthalidone 25 1 tab PO DAILY #90 tab 04/20/20 mg tablet benazepril 40 mg tablet 40 mg PO DAILY #90 tab 04/20/20 montelukast 10 mg tablet 10 mg PO DAILY #90 tab 04/20/20 levothyroxine 88 mcg tablet 88 mcg PO DAILY #90 tab 05/23/20 simvastatin 20 mg tablet 20 mg PO BEDTIME #90 tab 06/24/20 cyanocobalamin (vitamin B-12) 1,000 mcg PO DAILY #30 tab 07/13/20 1,000 mcg tablet,extended release flash glucose sensor (FreeStyle 1 ea TOPICAL .COMPLEX 28 Days #2 07/14/20 Amberly 14 Day Sensor) kit amlodipine 10 mg tablet 10 mg PO DAILY #90 tab 08/28/20 empagliflozin 10 mg tablet 10 mg PO QAM #30 tab 10/20/20 (Jardiance) fluticasone propionate 50 1 spray INTRANASAL DAILY #16 g 12/31/20 mcg/actuation nasal spray,suspension (Flonase Allergy Relief) metformin 1,000 mg tablet 1,000 mg PO BID #180 tab 01/06/21 insulin lispro 100 unit/mL See Rx Instructions SUBCUT TID 30 01/27/21 subcutaneous pen (Humalog Kwik Days #30 ml (U-100) Insulin) liraglutide 0.6 mg/0.1 mL (18 mg/3 1.8 mg (0.3 mL) SUBCUT DAILY #9 ml 01/27/21 mL) subcutaneous pen injector ([employer] 3-German) omega-3 fatty acids-fish oil 300 See Rx Instructions PO BID 30 Days 01/27/21 mg-1,000 mg capsule #90 cap norethindrone acetate 1 mg-ethinyl 1 tab PO DAILY #63 tab 02/27/21 estradiol 20 mcg tablet (Junel) fenofibrate micronized 134 mg 134 mg PO DAILY #90 cap 03/22/21 capsule pen needle, diabetic 32 gauge x 1 ea MISCELLANEOUS .COMPLEX #200 ea 03/22/2132 (BD Vivian 2nd Gen Pen Needle) nitrofurantoin 100 mg PO Q12H 7 Days #14 cap 04/02/21 monohydrate/macrocrystals 100 mg capsule (Macrobid) insulin degludec 200 unit/mL (3 100 unit (0.5 mL) SUBCUT DAILY 30 04/05/21 mL) subcutaneous pen Days #15 ml cefpodoxime 100 mg tablet 100 mg PO BID #14 tab 04/12/21 Allergies Allergy/AdvReac Type Severity Reaction Status Date / Time Sulfa (Sulfonamide Allergy Unknown HIVES Verified 04/02/21 14:45 Antibiotics) [SULFA (SULFONAMIDE ANTIBIOTICS)] Review of Systems Review of Systems: Yes all other systems are reviewed and are negative [facility] Past Medical History Medical History Anemia BMI 40.0-44.9, adult Depression Diabetes mellitus with hyperglycemia Dyslipidemia Enlargement of labia Essential hypertension Hypertriglyceridemia Hypothyroidism PCOS (polycystic ovarian syndrome) Potential exposure to STD Shoulder pain, right Surgical History Hx of cholecystectomy Hx of hand surgery Hx of sinus surgery Morbid (severe) obesity due to excess calories Family History Family History Father CVD (cardiovascular disease) Diabetes type 2, uncontrolled Alzheimer's dementia Mother HTN (hypertension) Brother No problems noted. 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 Gender identity: Female Physical Exam Vital Signs: Vital Signs: Last Vital Signs Temp 96.9 F 04/20/21 15:32 Pulse 68 04/20/21 18:33 Resp 16 04/20/21 18:33 BP 133/73 04/20/21 18:33 Pulse Ox 97 04/20/21 18:33 Body Mass Index 43.2 Appearance: Alert. Oriented X3. No acute distress. Eyes: No pallor or icterus ENT: Pharynx normal. Oral Mucosa moist Neck: Normal inspection. Neck supple. CVS: Normal heart rate and rhythm. Pulses normal. Respiratory: No respiratory distress. Equal air entry bilateral, no wheezing/rales/rhonchi Abdomen: Soft and nontender. Bowel sounds are present, no mass palpable, no CVA tenderness Skin: Skin warm and dry. Normal skin color. Normal skin turgor. Extremities: No lower extremity edema. No calf tenderness Neuro: Oriented X 3. MDM - Female Genitourinary MDM Narrative Medical decision making narrative: Patient with ESBL E coli UTI with no signs of sepsis at this time will admit patient for IV ertapenem treatment ID to see and follow Lab Data Attestation: I reviewed the patient's lab results. Result diagrams: 04/20/21 18:32 04/20/21 18:32 Labs: Lab Results 04/20/21 04/20/21 04/20/21 Range/Units 15:54 18:32 18:32 WBC 12.0 H (4.8-10.8) X10*3/uL RBC 4.70 (4.20-5.50) X10*6/uL Hgb 10.3 L (12.0-16.0) g/dl Hct 34.0 L (37.0-47.0) % MCV 72.3 L (80.0-98.0) fL MCH 21.9 L (27.0-33.0) pg MCHC 30.3 L (31.0-35.0) g/dl RDW 16.7 H (11.0-16.0) % Plt Count 541 H (160-400) X10*3/uL MPV 8.7 L (9.4-12.3) fL Immature Gran % (Auto) 0.3 (0.0-0.4) % Neut % (Auto) 48.2 (45-73) % Lymph % (Auto) 40.3 H (20-40) % [place] % (Auto) 6.2 (2-11) % Eos % (Auto) 4.4 H (0-4) % Baso % (Auto) 0.6 (0-2) % Lymph # (Auto) 4.8 (1.2-4.9) X10*3/uL [place] # (Auto) 0.7 (0.1-1.2) X10*3/uL Eos # (Auto) 0.5 H (0.0-0.4) X10*3/uL Baso # (Auto) 0.1 (0.0-0.2) X10*3/uL Abs Immat Gran (auto) 0.03 (0.00-0.03) X10*3/uL Absolute Neuts (auto) 5.8 (2.0-8.3) x10*3/uL Absolute Nucleated RBC 0.000 (0.0-0.012) X10*3/uL Nucleated RBC % (auto) 0.0 (0.0-0.2) /100WBC Sodium (135-145) mmol/L Potassium (3.3-5.1) mmol/L Chloride (96-108) mmol/L Carbon Dioxide (22-29) mmol/L Anion Gap (12-20) BUN (9-16) mg/dL Creatinine (0.5-1.4) mg/dL Estim Creat Clear Calc Estimated GFR Random Glucose (60-115) mg/dL Lactic Acid (0.5-2.0) mmol/L Calcium (8.4-10.2) mg/dL Total Bilirubin (0.0-1.0) mg/dL AST (5-31) U/L ALT (0-31) U/L Alkaline Phosphatase (39-117) U/L Total Protein (6.5-8.0) g/dL Albumin (3.5-5.0) g/dL Urine Color YELLOW Urine Appearance CLOUDY Urine pH 6.5 (5.0-8.0) Ur Specific [place] 1.010 (1.005-1.025) Urine Protein 1+ H (NEG-TRACE) MG/DL Urine Glucose (UA) NEG (NEG) MG/DL Urine Ketones NEG (NEG) MG/DL Urine Blood TRACE (NEG) Urine Nitrite NEG (NEG) Ur Leukocyte Esterase 3+ H (NEG) Urine RBC 0-2 (0) /HPF Urine WBC 15-29 H (0-4) /HPF Ur Squamous Epith Cells 2+ /LPF Ur Renal Epithelial Cell TRACE /LPF Talc Crystals TRACE /LPF Amorphous Sediment TRACE /LPF Urine Bacteria 2+ /LPF Urine Mucus 1+ /LPF COVID-19 (JOSHUA) Negative (Negative) COVID-19 Clin Com See Note 04/20/21 04/20/21 Range/Units 18:32 18:32 WBC (4.8-10.8) X10*3/uL RBC (4.20-5.50) X10*6/uL Hgb (12.0-16.0) g/dl Hct (37.0-47.0) % MCV (80.0-98.0) fL MCH (27.0-33.0) pg MCHC (31.0-35.0) g/dl RDW (11.0-16.0) % Plt Count (160-400) X10*3/uL MPV (9.4-12.3) fL Immature Gran % (Auto) (0.0-0.4) % Neut % (Auto) (45-73) % Lymph % (Auto) (20-40) % [place] % (Auto) (2-11) % Eos % (Auto) (0-4) % Baso % (Auto) (0-2) % Lymph # (Auto) (1.2-4.9) X10*3/uL [place] # (Auto) (0.1-1.2) X10*3/uL Eos # (Auto) (0.0-0.4) X10*3/uL Baso # (Auto) (0.0-0.2) X10*3/uL Abs Immat Gran (auto) (0.00-0.03) X10*3/uL Absolute Neuts (auto) (2.0-8.3) x10*3/uL Absolute Nucleated RBC (0.0-0.012) X10*3/uL Nucleated RBC % (auto) (0.0-0.2) /100WBC Sodium 137 (135-145) mmol/L Potassium 4.1 (3.3-5.1) mmol/L Chloride 103 (96-108) mmol/L Carbon Dioxide 24 (22-29) mmol/L Anion Gap 14 (12-20) BUN 15 (9-16) mg/dL Creatinine 0.87 (0.5-1.4) mg/dL Estim Creat Clear Calc 103.8 Estimated GFR > 60 Random Glucose 130 H (60-115) mg/dL Lactic Acid 1.2 (0.5-2.0) mmol/L Calcium 9.2 (8.4-10.2) mg/dL Total Bilirubin 0.2 (0.0-1.0) mg/dL AST 19 (5-31) U/L ALT 15 (0-31) U/L Alkaline Phosphatase 96 (39-117) U/L Total Protein 7.5 (6.5-8.0) g/dL Albumin 4.1 (3.5-5.0) g/dL Urine Color Urine Appearance Urine pH (5.0-8.0) Ur Specific [place] (1.005-1.025) Urine Protein (NEG-TRACE) MG/DL Urine Glucose (UA) (NEG) MG/DL Urine Ketones (NEG) MG/DL Urine Blood (NEG) Urine Nitrite (NEG) Ur Leukocyte Esterase (NEG) Urine RBC (0) /HPF Urine WBC (0-4) /HPF Ur Squamous Epith Cells /LPF Ur Renal Epithelial Cell /LPF Talc Crystals /LPF Amorphous Sediment /LPF Urine Bacteria /LPF Urine Mucus /LPF COVID-19 (JOSHUA) (Negative) COVID-19 Clin Com Discharge Plan Discharge Clinical Impression: UTI due to extended-spectrum beta lactamase (ESBL) producing Escherichia coli Patient Disposition: Admitted As Inpatient
[2021-04-20 18:33] VITALS: BP 133/73; PULSE 68; RESP 16; O2SAT 97
[2021-04-20] MEDS: 0.9 % Sodium Chloride 1,000 ML 999 ML IVCONT (18:39)
[2021-04-20 18:41] LABS: MANUAL DIFF FLAG NO
[2021-04-20 18:43] LABS: Basophils Absolute Auto 0.1 X10*3/uL (0.0-0.2); Basophils Percent Auto 0.6 % (0-2); Eosinophils Absolute Auto 0.5 X10*3/uL (0.0-0.4); Eosinophils Percent Auto 4.4 % (0-4); Hemoglobin 10.3 g/dl (12.0-16.0); Imm Gran Abs Auto 0.03 X10*3/uL (0.00-0.03); Imm Gran Pct Auto 0.3 % (0.0-0.4); Lymphocytes Absolute Auto 4.8 X10*3/uL (1.2-4.9); Lymphocytes Percent Auto 40.3 % (20-40); Mean Corpuscular HGB Conc 30.3 g/dl (31.0-35.0); Mean Corpuscular Hemoglobin 21.9 pg (27.0-33.0); Mean Corpuscular Volume 72.3 fL (80.0-98.0); Mean Platelet Volume 8.7 fL (9.4-12.3); Monocytes Absolute Auto 0.7 X10*3/uL (0.1-1.2); Monocytes Percent Auto 6.2 % (2-11); Neutrophils Absolute Auto 5.8 x10*3/uL (2.0-8.3); Neutrophils Percent Auto 48.2 % (45-73); Platelet Count 541 X10*3/uL (160-400); Red Cell Distribution Width 16.7 % (11.0-16.0)
[2021-04-20 18:55] LABS: Lactic Acid 1.2 mmol/L (0.5-2.0)
[2021-04-20 18:56] LABS: COVID-19 Test Negative (Negative)
[2021-04-20 19:01] LABS: Alanine Aminotransferase 15 U/L (0-31); Albumin Level 4.1 g/dL (3.5-5.0); Alkaline Phosphatase 96 U/L (39-117); Anion Gap 14 (12-20); Aspartate Amino Transferase 19 U/L (5-31); Bilirubin Total 0.2 mg/dL (0.0-1.0); Blood Urea Nitrogen 15 mg/dL (9-16); Calcium 9.2 mg/dL (8.4-10.2); Carbon Dioxide 24 mmol/L (22-29); Chloride 103 mmol/L (96-108); Creatinine Clr Calc Pharmacy 103.8; Estimated Glomerular Filt Rate > 60; Glucose Random 130 mg/dL (60-115); Potassium 4.1 mmol/L (3.3-5.1); Sodium 137 mmol/L (135-145); Total Protein 7.5 g/dL (6.5-8.0)
[2021-04-20] MEDS: Ertapenem Sodium 1 GM in 0.9 % Sodium Chloride 50 ML IV (19:30)
--- NOTE | 2021-04-20 20:05 | PM.IMHP ---
History of Present Illness Date of Service: 04/20/21 Chief Complaint: UTI 46-year-old female with a past medical history of hypertension, hyperlipidemia, diabetes, history of recurrent UTIs, obesity presented to the hospital with a chief complaint of frequency urgency and dysuria for the past 2 weeks. Patient reports that she spoke to her PCP and was on Macrobid and cefpodoxime; her symptoms were not improving and she has urine cultures done as outpatient which are growing ESBL E coli; subsequently sent to the hospital for further evaluation/IV antibiotics. Patient denies any abdominal pain. Denies any nausea vomiting diarrhea. Denies any fever chills cough. Denies any numbness tingling or focal weakness. Review of all other systems is negative except mentioned above ER course: For ER team patient lab shows mild leukocytosis; chemistry the normal limits; patient was given ertapenem; admitted to the hospital for further management PMFSH Medical History Anemia BMI 40.0-44.9, adult Depression Diabetes mellitus with hyperglycemia Dyslipidemia Enlargement of labia Essential hypertension Hypertriglyceridemia Hypothyroidism PCOS (polycystic ovarian syndrome) Potential exposure to STD Shoulder pain, right Family History Father CVD (cardiovascular disease) Diabetes type 2, uncontrolled Alzheimer's dementia Mother HTN (hypertension) Brother No problems noted. 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 Gender identity: Female Meds Allergies Allergy/AdvReac Type Severity Reaction Status Date / Time Sulfa (Sulfonamide Allergy Unknown HIVES Verified 04/02/21 14:45 Antibiotics) [SULFA (SULFONAMIDE ANTIBIOTICS)] Active Medications: Current Medications Dextrose (Dextrose 50 % 25 Gm/50 Ml Vial) 25 gm IVPUSH Q15M PRN; Protocol PRN Reason: per Hypoglycemia Standing Ord. Glucose (Glucose Gel 15 Gm Gel..Gram.) 15 gm PO Q15M PRN; Protocol PRN Reason: per Hypoglycemia Standing Ord. Ertapenem 1 gm/ Sodium (Chloride) 50 mls @ 100 mls/hr IV DAILY NATTY Insulin Human Lispro (Insulin Lispro 100 Unit/Ml 3 Ml Vial) 0 unit SUBCUT QIDACHS NATTY; Protocol Home Medications Medication Instructions Recorded Confirmed Last Taken Type albuterol sulfate 90 mcg/actuation INHALATION 03/25/20 04/02/21 Unknown History aerosol inhaler blood sugar diagnostic #10 ea 03/25/20 04/02/21 Unknown History clonazepam 1 mg tablet 1 mg PO BEDTIME PRN 03/25/20 04/02/21 Unknown History duloxetine 30 mg capsule,delayed 30 mg PO DAILY 03/25/20 04/02/21 Unknown History release duloxetine 60 mg capsule,delayed 60 mg PO DAILY 03/25/20 04/02/21 Unknown History release lancets 28 gauge #100 ea 03/25/20 04/02/21 Unknown History lisdexamfetamine 60 mg capsule 60 mg PO QAM 03/25/20 04/02/21 Unknown History omeprazole 20 mg capsule,delayed 20 mg PO BID 03/25/20 04/02/21 Unknown History release aripiprazole 10 mg tablet 10 mg PO DAILY 01/29/21 Unknown History Physical Exam Vital Signs and Narrative: Vital Signs: Last Vital Signs Temp 96.9 F 04/20/21 15:32 Pulse 68 04/20/21 18:33 Resp 16 04/20/21 18:33 BP 133/73 04/20/21 18:33 Pulse Ox 97 04/20/21 18:33 Body Mass Index 43.2 Gen: Appears be in no acute distress HEENT: NCAT, Moist mucosa. Pulmonary: Vesicular breath sounds, fair air entry CVS: Normal S1-S2 Abdomen: BS+, Soft, Nontender Extremities: Warm well perfused Neuro: Alert and awake. Results Labs CBC and Chem 7: 04/20/21 18:32 04/20/21 18:32 Labs: Laboratory Results - last 24 hr 04/20/21 04/20/21 04/20/21 15:54 18:32 18:32 MCV 72.3 L MCH 21.9 L MCHC 30.3 L RDW 16.7 H Plt Count 541 H MPV 8.7 L Immature Gran % (Auto) 0.3 Neut % (Auto) 48.2 Lymph % (Auto) 40.3 H [place] % (Auto) 6.2 Eos % (Auto) 4.4 H Baso % (Auto) 0.6 Lymph # (Auto) 4.8 [place] # (Auto) 0.7 Eos # (Auto) 0.5 H Baso # (Auto) 0.1 Abs Immat Gran (auto) 0.03 Absolute Neuts (auto) 5.8 Absolute Nucleated RBC 0.000 Nucleated RBC % (auto) 0.0 Anion Gap Estim Creat Clear Calc Estimated GFR Random Glucose Lactic Acid Calcium Total Bilirubin AST ALT Alkaline Phosphatase Total Protein Albumin Urine Color YELLOW Urine Appearance CLOUDY Urine pH 6.5 Ur Specific [place] 1.010 Urine Protein 1+ H Urine Glucose (UA) NEG Urine Ketones NEG Urine Blood TRACE Urine Nitrite NEG Ur Leukocyte Esterase 3+ H Urine RBC 0-2 Urine WBC 15-29 H Ur Squamous Epith Cells 2+ Ur Renal Epithelial Cell TRACE Talc Crystals TRACE Amorphous Sediment TRACE Urine Bacteria 2+ Urine Mucus 1+ COVID-19 (JOSHUA) Negative COVID-19 Clin Com See Note 04/20/21 04/20/21 18:32 18:32 MCV MCH MCHC RDW Plt Count MPV Immature Gran % (Auto) Neut % (Auto) Lymph % (Auto) [place] % (Auto) Eos % (Auto) Baso % (Auto) Lymph # (Auto) [place] # (Auto) Eos # (Auto) Baso # (Auto) Abs Immat Gran (auto) Absolute Neuts (auto) Absolute Nucleated RBC Nucleated RBC % (auto) Anion Gap 14 Estim Creat Clear Calc 103.8 Estimated GFR > 60 Random Glucose 130 H Lactic Acid 1.2 Calcium 9.2 Total Bilirubin 0.2 AST 19 ALT 15 Alkaline Phosphatase 96 Total Protein 7.5 Albumin 4.1 Urine Color Urine Appearance Urine pH Ur Specific [place] Urine Protein Urine Glucose (UA) Urine Ketones Urine Blood Urine Nitrite Ur Leukocyte Esterase Urine RBC Urine WBC Ur Squamous Epith Cells Ur Renal Epithelial Cell Talc Crystals Amorphous Sediment Urine Bacteria Urine Mucus COVID-19 (JOSHUA) COVID-19 Clin Com Assessment and Plan (1) UTI due to extended-spectrum beta lactamase (ESBL) producing Escherichia coli: Status: Acute (2) Diabetes mellitus with hyperglycemia: Qualifiers: Diabetes mellitus type: type 2 Diabetes mellitus halfway insulin use: with termite inspector use Qualified Code(s): E11.65 - Type 2 diabetes mellitus with hyperglycemia; Z79.4 - 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 Cultures grew ESBL. Admitted for further management. ESBL E coli UTI: Patient failed outpatient antibiotic secondary to resistance. Continue ertapenem Id consult Renal ultrasound Diabetes: Insulin sliding scale. Monitor fingerstick glucose. Adjust insulins as needed. Hold metformin. Hypertension/hyperlipidemia: Continue home medications. History of hypothyroidism: Continue home levothyroxine DVT prophylaxis: Lovenox Code status: Full code Quality Stroke Does the patient have a stroke diagnosis?: No VTE Prior VTE?: No VTE Risk Level:: Medical - moderate - high VTE Device Contraindication: N/A - Device Ordered VTE Drug Contraindication: Treatment Not Indicated
--- NOTE | 2021-04-20 21:22 | PHA.MEDREC ---
Pharmacy Consult ? Medication Reconciliation Pharmacy has completed the medication reconciliation. PATIENT HAS NOT STARTED JARDIANCE YET. SHE ALSO TAKES 2 NAPROXEN TABLETS BID. Thanks Iris Zavala D
[2021-04-20 21:23] LABS: Glucose, Whole Blood 178 mg/dL (60-115)
[2021-04-20] MEDS: Dextrose 5 % and 0.45 % NaCl 1,000 ML 50 ML IVCONT (21:26)
[2021-04-20] MEDS: Insulin Lispro 100 UNIT/ML 3 ML VIAL SUBCUT (21:27)
[2021-04-20] MEDS: ARIPiprazole 15 MG TABLET PO (22:29)
[2021-04-20 22:46] VITALS: BP 149/68; PULSE 90; RESP 16; TEMP 37; O2SAT 98
[2021-04-20 22:50] LABS: Glucose, Whole Blood 196 mg/dL (60-115)
[2021-04-20] MEDS: lisinopriL 40 MG TABLET PO (23:37)
[2021-04-20] MEDS: Enoxaparin Sodium 40 MG/0.4 ML SYRINGE SUBCUT (23:38)
[2021-04-21] VITALS (7 sets, daily range): BP systolic 123–144; BP diastolic 65–81; PULSE 80–90; RESP 14–18; TEMP 36.6–37; O2SAT 97–99
[2021-04-21] MEDS: 0.9 % Sodium Chloride Flush 3 ML SYRINGE IVFLUSH (00:03)
--- NOTE | 2021-04-21 00:39 | PC.NURSE ---
Since I arrived at 1900 the pt has been resting in bed alert and orineted x 3. She is awaiting an inpatient bed assignment as she is being admitted for recurrent, antibitoic resistant UTI. She verbalizes an understanding of this. There is no chest pain or shortness of breath. Speech clear and appropriate. No nausea or vomiting. She has been taking PO food and fluids without difficulty. We will continue to monitor the patient.
[2021-04-21] MEDS: Omeprazole 20 MG CAPSULE.DR PO ×2 (06:41→16:45)
[2021-04-21] MEDS: Levothyroxine Sodium 88 MCG TABLET PO (07:21)
[2021-04-21 07:24] LABS: MANUAL DIFF FLAG NO
[2021-04-21 07:26] LABS: Glucose, Whole Blood 122 mg/dL (60-115)
[2021-04-21 07:26] LABS: Basophils Absolute Auto 0.1 X10*3/uL (0.0-0.2); Basophils Percent Auto 0.6 % (0-2); Eosinophils Absolute Auto 0.6 X10*3/uL (0.0-0.4); Eosinophils Percent Auto 5.4 % (0-4); Hematocrit 30.7 % (37.0-47.0); Imm Gran Abs Auto 0.04 X10*3/uL (0.00-0.03); Imm Gran Pct Auto 0.4 % (0.0-0.4); Lymphocytes Absolute Auto 3.9 X10*3/uL (1.2-4.9); Lymphocytes Percent Auto 36.4 % (20-40); Mean Corpuscular HGB Conc 29.3 g/dl (31.0-35.0); Mean Corpuscular Hemoglobin 21.5 pg (27.0-33.0); Mean Corpuscular Volume 73.4 fL (80.0-98.0); Mean Platelet Volume 8.7 fL (9.4-12.3); Monocytes Absolute Auto 0.8 X10*3/uL (0.1-1.2); Neutrophils Absolute Auto 5.4 x10*3/uL (2.0-8.3); Neutrophils Percent Auto 50.2 % (45-73); Platelet Count 482 X10*3/uL (160-400); Red Blood Count 4.18 X10*6/uL (4.20-5.50); Red Cell Distribution Width 16.7 % (11.0-16.0); White Blood Count 10.7 X10*3/uL (4.8-10.8)
[2021-04-21 07:39] LABS: Anion Gap 13 (12-20); Blood Urea Nitrogen 12 mg/dL (9-16); Calcium 8.8 mg/dL (8.4-10.2); Carbon Dioxide 23 mmol/L (22-29); Chloride 106 mmol/L (96-108); Creatinine Clr Calc Pharmacy 110.1; Estimated Glomerular Filt Rate > 60; Glucose Random 148 mg/dL (60-115); Sodium 138 mmol/L (135-145)
[2021-04-21] MEDS: Fenofibrate,Micronized 134 MG CAPSULE PO (09:42)
[2021-04-21] MEDS: amLODIPine Besylate 10 MG TABLET PO (09:42)
[2021-04-21] MEDS: DULoxetine HCl 60 MG CAPSULE.DR PO (09:42)
[2021-04-21] MEDS: atenoloL 50 MG TABLET PO (09:42)
[2021-04-21] MEDS: hydroCHLOROthiazide 25 MG TABLET PO (09:42)
[2021-04-21] MEDS: Cyanocobalamin (Vitamin B-12) 1,000 MCG TABLET 1000 MCG PO (09:43)
[2021-04-21 12:35] LABS: Glucose, Whole Blood 133 mg/dL (60-115)
--- NOTE | 2021-04-21 13:47 | MHC.CM.PN ---
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 D/C PLAN: ANTICIPATE D/C TOMORROW 04/22/21 HOME SELF-CARE W/ORAL ABX, PT WILL DRIVE SELF HOME.
--- NOTE | 2021-04-21 14:17 | HO.PM.IMPN ---
Subjective Subjective Date of Service: 04/21/21 Interval History: Patient seen and examined at bedside. She reports improving symptoms. She has no burning on urination, no fever or chills this morning. No abdominal pain, no diarrhea constipation, no lower extremity edema. Review of Systems Review of Systems: Yes all other systems are reviewed and are negative Physical Exam Vital Signs: Vital Signs: Last Vital Signs Temp 98.0 F 04/21/21 11:54 Pulse 80 04/21/21 11:54 Resp 18 04/21/21 11:54 BP 123/65 04/21/21 11:54 Pulse Ox 97 04/21/21 11:54 Body Mass Index 43.2 Const: General: cooperative and no acute distress Orientation/consciousness: patient oriented x3 Resp: Effort & Inspection: normal respiratory effort Auscultation: clear to auscultation bilaterally Cardio: Rate: regular rate Rhythm: regular rhythm GI: Palpation (GI): Soft to palpation Auscultation: normal bowel sounds Neuro: General: patient oriented x3 Extrem: General: Yes normal to inspection and Yes no pedal edema Objective Data Active Medications Acetaminophen (Acetaminophen 325 Mg Tablet) 650 mg PO Q6H PRN PRN Reason: Pain, Mild (Pain Scale 1-3) Amlodipine Besylate (Amlodipine Besylate 10 Mg Tablet) 10 mg PO DAILY [facility]; Protocol Last Admin: 04/21/21 09:42 Dose: 10 mg Documented by: LATONIA Aripiprazole (Aripiprazole 15 Mg Tablet) 15 mg PO BEDTIME [facility] Last Admin: 04/20/21 22:29 Dose: 15 mg Documented by: ELE Atenolol (Atenolol 50 Mg Tablet) 50 mg PO DAILY [facility] Last Admin: 04/21/21 09:42 Dose: 50 mg Documented by: LATONIA Atorvastatin Calcium (Atorvastatin Calcium 10 Mg Tablet) 10 mg PO BEDTIME [facility] Clonazepam (Clonazepam 1 Mg Tablet) 1 mg PO BEDTIME NATTY Cyanocobalamin (Cyanocobalamin (Vitamin B-12) 1,000 Mcg Tablet) 1,000 mcg PO DAILY [facility] Last Admin: 04/21/21 09:43 Dose: 1,000 mcg Documented by: LATONIA Dextrose (Dextrose 50 % 25 Gm/50 Ml Vial) 25 gm IVPUSH Q15M PRN; Protocol PRN Reason: per Hypoglycemia Standing Ord. Duloxetine HCl (Duloxetine Hcl 30 Mg Capsule.Dr) 30 mg PO BEDTIME [facility] Duloxetine HCl (Duloxetine Hcl 60 Mg Capsule.) 60 mg PO DAILY [facility] Last Admin: 04/21/21 09:42 Dose: 60 mg Documented by: LATONIA Enoxaparin Sodium (Enoxaparin Sodium 40 Mg/0.4 Ml Syringe) 40 mg SUBCUT Q24H [facility] Last Admin: 04/20/21 23:38 Dose: 40 mg Documented by: ELE Fenofibrate (Fenofibrate,Micronized 134 Mg Capsule) 134 mg PO DAILY [facility] Last Admin: 04/21/21 09:42 Dose: 134 mg Documented by: LATONIA Glucose (Glucose Gel 15 Gm Gel..Gram.) 15 gm PO Q15M PRN; Protocol PRN Reason: per Hypoglycemia Standing Ord. Hydrochlorothiazide (Hydrochlorothiazide 25 Mg Tablet) 25 mg PO DAILY [facility] Last Admin: 04/21/21 09:42 Dose: 25 mg Documented by: LATONIA Ertapenem 1 gm/ Sodium (Chloride) 50 mls @ 100 mls/hr IV DAILY [facility] Dextrose/Sodium Chloride (D51/2ns) 1,000 mls @ 50 mls/hr IVCONT .Q20H [facility] Last Admin: 04/20/21 21:26 Dose: 50 mls/hr Documented by: ELE Insulin Glargine (Insulin Glargine,Hum.Rec.Anlog 100 Unit/Ml 10 Ml Vial) 70 unit SUBCUT BEDTIME [facility] Insulin Human Lispro (Insulin Lispro 100 Unit/Ml 3 Ml Vial) 0 unit SUBCUT QIDACHS [facility]; Protocol Last Admin: 04/21/21 12:46 Dose: Not Given Documented by: LATONIA Non-Admin Reason: No Insulin Coverage Levothyroxine Sodium (Levothyroxine Sodium 88 Mcg Tablet) 88 mcg PO DAILY@0600 [facility] Last Admin: 04/21/21 07:21 Dose: 88 mcg Documented by: LOUIE Lisinopril (Lisinopril 40 Mg Tablet) 40 mg PO BEDTIME [facility] Last Admin: 04/20/21 23:37 Dose: 40 mg Documented by: ELE Melatonin (Melatonin 3 Mg Tablet) 6 mg PO BEDTIME PRN PRN Reason: Insomnia Montelukast Sodium (Montelukast Sodium 10 Mg Tablet) 10 mg PO BEDTIME [facility] Patient Own Med ( Vyvanse 60 Mg Capsule) 1 each PO DAILY [facility] Last Admin: 04/21/21 10:11 Dose: 1 each Documented by: LATONIA Patient Own Med (( Norethindrone Ac-Eth Estradiol [07/01 (21)] 1-20 Mg-Mcg Tab) 1 each PO BEDTIME [facility] Last Admin: 04/20/21 22:46 Dose: 1 each Documented by: ELE Omeprazole (Omeprazole 20 Mg Capsule.) 20 mg PO BID@0630,1630 [facility] Last Admin: 04/21/21 06:41 Dose: 20 mg Documented by: ELE Pharmacy Consult (Consult Rx Perform Med Rec) 1 each MISCELLANE ONCE PRN PRN Reason: Consult order Senna (Sennosides 8.6 Mg Tablet) 17.2 mg PO BEDTIME PRN PRN Reason: Constipation Sodium Chloride (0.9 % Sodium Chloride Flush 3 Ml Syringe) 3 ml IVFLUSH QSHIFT [facility] Last Admin: 04/21/21 09:48 Dose: Not Given Documented by: LATONIA Non-Admin Reason: IV Running Labs CBC & Chem 7: 04/21/21 07:14 04/21/21 07:14 Labs: Laboratory Results - last 24 hr 04/20/21 04/20/21 04/20/21 15:54 18:32 18:32 MCV 72.3 L MCH 21.9 L MCHC 30.3 L RDW 16.7 H Plt Count 541 H MPV 8.7 L Immature Gran % (Auto) 0.3 Neut % (Auto) 48.2 Lymph % (Auto) 40.3 H [place] % (Auto) 6.2 Eos % (Auto) 4.4 H Baso % (Auto) 0.6 Lymph # (Auto) 4.8 [place]wey # (Auto) 0.7 Eos # (Auto) 0.5 H Baso # (Auto) 0.1 Abs Immat Gran (auto) 0.03 Absolute Neuts (auto) 5.8 Absolute Nucleated RBC 0.000 Nucleated RBC % (auto) 0.0 Anion Gap Estim Creat Clear Calc Estimated GFR POC Glucose Random Glucose Lactic Acid Calcium Total Bilirubin AST ALT Alkaline Phosphatase Total Protein Albumin Urine Color YELLOW Urine Appearance CLOUDY Urine pH 6.5 Ur Specific [place] 1.010 Urine Protein 1+ H Urine Glucose (UA) NEG Urine Ketones NEG Urine Blood TRACE Urine Nitrite NEG Ur Leukocyte Esterase 3+ H Urine RBC 0-2 Urine WBC 15-29 H Ur Squamous Epith Cells 2+ Ur Renal Epithelial Cell TRACE [place] Crystals TRACE Amorphous Sediment TRACE Urine Bacteria 2+ Urine Mucus 1+ COVID-19 (JOSHUA) Negative COVID-19 Clin Com See Note 04/20/21 04/20/21 04/20/21 18:32 18:32 21:19 MCV MCH MCHC RDW Plt Count MPV Immature Gran % (Auto) Neut % (Auto) Lymph % (Auto) [place] % (Auto) Eos % (Auto) Baso % (Auto) Lymph # (Auto) [place] # (Auto) Eos # (Auto) Baso # (Auto) Abs Immat Gran (auto) Absolute Neuts (auto) Absolute Nucleated RBC Nucleated RBC % (auto) Anion Gap 14 Estim Creat Clear Calc 103.8 Estimated GFR > 60 POC Glucose 178 H Random Glucose 130 H Lactic Acid 1.2 Calcium 9.2 Total Bilirubin 0.2 AST 19 ALT 15 Alkaline Phosphatase 96 Total Protein 7.5 Albumin 4.1 Urine Color Urine Appearance Urine pH Ur Specific [place] Urine Protein Urine Glucose (UA) Urine Ketones Urine Blood Urine Nitrite Ur Leukocyte Esterase Urine RBC Urine WBC Ur Squamous Epith Cells Ur Renal Epithelial Cell Tal[place] Crystals Amorphous Sediment Urine Bacteria Urine Mucus COVID-19 (JOSHUA) COVID-19 Clin Com 04/20/21 04/21/21 04/21/21 22:44 07:14 07:14 MCV 73.4 L MCH 21.5 L MCHC 29.3 L RDW 16.7 H Plt Count 482 H MPV 8.7 L Immature Gran % (Auto) 0.4 Neut % (Auto) 50.2 Lymph % (Auto) 36.4 [place] % (Auto) 7.0 Eos % (Auto) 5.4 H Baso % (Auto) 0.6 Lymph # (Auto) 3.9 [place] # (Auto) 0.8 Eos # (Auto) 0.6 H Baso # (Auto) 0.1 Abs Immat Gran (auto) 0.04 H Absolute Neuts (auto) 5.4 Absolute Nucleated RBC 0.000 Nucleated RBC % (auto) 0.0 Anion Gap 13 Estim Creat Clear Calc 110.1 Estimated GFR > 60 POC Glucose 196 H Random Glucose 148 H Lactic Acid Calcium 8.8 Total Bilirubin AST ALT Alkaline Phosphatase Total Protein Albumin Urine Color Urine Appearance Urine pH Ur Specific [place] Urine Protein Urine Glucose (UA) Urine Ketones Urine Blood Urine Nitrite Ur Leukocyte Esterase Urine RBC Urine WBC Ur Squamous Epith Cells Ur Renal Epithelial Cell Talc Crystals Amorphous Sediment Urine Bacteria Urine Mucus COVID-19 (JOSHUA) COVID-19 Clin Com 04/21/21 04/21/21 07:22 11:56 MCV MCH MCHC RDW Plt Count MPV Immature Gran % (Auto) Neut % (Auto) Lymph % (Auto) [place] % (Auto) Eos % (Auto) Baso % (Auto) Lymph # (Auto) [place] # (Auto) Eos # (Auto) Baso # (Auto) Abs Immat Gran (auto) Absolute Neuts (auto) Absolute Nucleated RBC Nucleated RBC % (auto) Anion Gap Estim Creat Clear Calc Estimated GFR POC Glucose 122 H 133 H Random Glucose Lactic Acid Calcium Total Bilirubin AST ALT Alkaline Phosphatase Total Protein Albumin Urine Color Urine Appearance Urine pH Ur Specific [place] Urine Protein Urine Glucose (UA) Urine Ketones Urine Blood Urine Nitrite Ur Leukocyte Esterase Urine RBC Urine WBC Ur Squamous Epith Cells Ur Renal Epithelial Cell Talc Crystals Amorphous Sediment Urine Bacteria Urine Mucus COVID-19 (JOSHUA) COVID-19 Clin Com Microbiology Microbiology Results: Microbiology 04/20/21 15:51 Urine Culture - Preliminary Urine clean catch - Clean Catch Midstream Gram negative amira Assessment and Plan (1) UTI due to extended-spectrum beta lactamase (ESBL) producing Escherichia coli: Status: Acute Assessment and Plan: 46-year-old female with past medical history of hypertension, hyperlipidemia, diabetes, history of recurrent UTIs obesity who presented to the hospital after failing outpatient therapy for UTI. Patient also grew ESBL on her urine cultures outpatient therefore admitted for treatment of ESBL UTI # ESBL UTI - patient was treated with cefpodoxime and Macrobid outpatient but continued to have symptoms - her cultures are patient also grew ESBL and was asked to come to the hospital - at this time will continue ertapenem - patient has been re-cultured - follow Infectious Disease recommendation # diabetes - continue low-dose sliding scale insulin - Diabetic diet # hypertension - stable continue home medications # hyperlipidemia - Continue home meds # hypothyroidism - continue levothyroxine DVT prophylaxis: Lovenox Quality Stroke Does the patient have a stroke diagnosis?: No VTE Prior VTE?: No VTE Risk Level:: Medical - moderate - high VTE Device Contraindication: N/A - Device Ordered VTE Drug Contraindication: Treatment Not Indicated
[2021-04-21 16:36] LABS: Glucose, Whole Blood 180 mg/dL (60-115)
[2021-04-21] MEDS: Insulin Lispro 100 UNIT/ML 3 ML VIAL SUBCUT ×2 (16:46→21:21)
[2021-04-21] MEDS: Dextrose 5 % and 0.45 % NaCl 1,000 ML 50 ML IVCONT (16:48)
[2021-04-21 20:37] LABS: Glucose, Whole Blood 242 mg/dL (60-115)
[2021-04-21] MEDS: Insulin Glargine,Hum.rec.anlog 100 UNIT/ML 10 ML VIAL 70 UNIT SUBCUT (21:21)
[2021-04-21] MEDS: DULoxetine HCl 30 MG CAPSULE.DR PO (21:22)
[2021-04-21] MEDS: Enoxaparin Sodium 40 MG/0.4 ML SYRINGE SUBCUT (21:22)
--- NOTE | 2021-04-21 21:22 | P.CNID_ITS ---
History of Present Illness Data of Consult Service Date: 04/21/21 Requesting physician: Sergei Marquez Primary Care Provider: MD CHUCK Hoyos Reason for consult: urinary infection,resistant She presents to hospital with dysuria as well as some suprapubic discomfort. She has no fever or chills. She has had symptoms for two weeks. shehas been on Nitrofurantoin as well as Cefpodoxime with no improvement She is very pleasant discourage patient. Review of Systems Review of Systems: Yes all other systems are reviewed and are negative [facility] Past Medical History Medical History Anemia BMI 40.0-44.9, adult Depression Diabetes mellitus with hyperglycemia Dyslipidemia Enlargement of labia Essential hypertension Hypertriglyceridemia Hypothyroidism PCOS (polycystic ovarian syndrome) Potential exposure to STD Shoulder pain, right Family History Family History Father CVD (cardiovascular disease) Diabetes type 2, uncontrolled Alzheimer's dementia Mother HTN (hypertension) Brother No problems noted. Family history: reviewed and not pertinent Surgical History Surgical History Hx of cholecystectomy Hx of hand surgery Hx of sinus surgery Morbid (severe) obesity due to excess calories Social History Social History Household Members: Family Household Members Other:: mom Housing: House Alcohol intake: never Patient Tobacco Use Status: Never used Tobacco Use of substances other than those prescribed or required for medical reasons: No Have you been hit, kicked, punched, or otherwise hurt by someone within the past year? If so, by whom?: No Advance Directives: No Advance Directives Information Provided: Yes Do you have thoughts of harming others: None Do you have a plan to hurt others: No Plan Recently lost weight without trying: No Patient : No service: No Current occupational status: employed Current occupation: [employer]. Gender identity: Female Meds Allergies Allergy/AdvReac Type Severity Reaction Status Date / Time Sulfa (Sulfonamide Allergy Unknown HIVES Verified 04/02/21 14:45 Antibiotics) [SULFA (SULFONAMIDE ANTIBIOTICS)] Active Medications: Current Medications Acetaminophen (Acetaminophen 325 Mg Tablet) 650 mg PO Q6H PRN PRN Reason: Pain, Mild (Pain Scale 1-3) Amlodipine Besylate (Amlodipine Besylate 10 Mg Tablet) 10 mg PO DAILY [facility]; Protocol Last Admin: 04/21/21 09:42 Dose: 10 mg Documented by: Aripiprazole (Aripiprazole 15 Mg Tablet) 15 mg PO BEDTIME [facility] Last Admin: 04/20/21 22:29 Dose: 15 mg Documented by: Atenolol (Atenolol 50 Mg Tablet) 50 mg PO DAILY [facility] Last Admin: 04/21/21 09:42 Dose: 50 mg Documented by: Atorvastatin Calcium (Atorvastatin Calcium 10 Mg Tablet) 10 mg PO BEDTIME [facility] Clonazepam (Clonazepam 1 Mg Tablet) 1 mg PO BEDTIME [facility] Cyanocobalamin (Cyanocobalamin (Vitamin B-12) 1,000 Mcg Tablet) 1,000 mcg PO DAILY [facility] Last Admin: 04/21/21 09:43 Dose: 1,000 mcg Documented by: Dextrose (Dextrose 50 % 25 Gm/50 Ml Vial) 25 gm IVPUSH Q15M PRN; Protocol PRN Reason: per Hypoglycemia Standing Ord. Duloxetine HCl (Duloxetine Hcl 30 Mg Capsule.) 30 mg PO BEDTIME [facility] Duloxetine HCl (Duloxetine Hcl 60 Mg Capsule.) 60 mg PO DAILY [facility] Last Admin: 04/21/21 09:42 Dose: 60 mg Documented by: Enoxaparin Sodium (Enoxaparin Sodium 40 Mg/0.4 Ml Syringe) 40 mg SUBCUT Q24H [facility] Last Admin: 04/20/21 23:38 Dose: 40 mg Documented by: Fenofibrate (Fenofibrate,Micronized 134 Mg Capsule) 134 mg PO DAILY [facility] Last Admin: 04/21/21 09:42 Dose: 134 mg Documented by: Glucose (Glucose Gel 15 Gm Gel..Gram.) 15 gm PO Q15M PRN; Protocol PRN Reason: per Hypoglycemia Standing Ord. Hydrochlorothiazide (Hydrochlorothiazide 25 Mg Tablet) 25 mg PO DAILY [facility] Last Admin: 04/21/21 09:42 Dose: 25 mg Documented by: Dextrose/Sodium Chloride (D51/2ns) 1,000 mls @ 50 mls/hr IVCONT .Q20H [facility] Last Admin: 04/21/21 16:48 Dose: 50 mls/hr Documented by: Meropenem 1 gm/ Sodium (Chloride) 100 mls @ 100 mls/hr IV Q8H [facility] Last Admin: 04/21/21 21:20 Dose: 100 mls/hr Documented by: Insulin Glargine (Insulin Glargine,Hum.Rec.Anlog 100 Unit/Ml 10 Ml Vial) 70 unit SUBCUT BEDTIME [facility] Insulin Human Lispro (Insulin Lispro 100 Unit/Ml 3 Ml Vial) 0 unit SUBCUT QIDACHS [facility]; Protocol Last Admin: 04/21/21 16:46 Dose: 2 unit Documented by: Levothyroxine Sodium (Levothyroxine Sodium 88 Mcg Tablet) 88 mcg PO DAILY@0600 [facility] Last Admin: 04/21/21 07:21 Dose: 88 mcg Documented by: Lisinopril (Lisinopril 40 Mg Tablet) 40 mg PO BEDTIME [facility] Last Admin: 04/20/21 23:37 Dose: 40 mg Documented by: Melatonin (Melatonin 3 Mg Tablet) 6 mg PO BEDTIME PRN PRN Reason: Insomnia Montelukast Sodium (Montelukast Sodium 10 Mg Tablet) 10 mg PO BEDTIME [facility] Patient Own Med ( Vyvanse 60 Mg Capsule) 1 each PO DAILY [facility] Last Admin: 04/21/21 10:11 Dose: 1 each Documented by: Patient Own Med (( Norethindrone Ac-Eth Estradiol [07/01 ()] 1-20 Mg-Mcg Tab) 1 each PO BEDTIME [facility] Last Admin: 04/20/21 22:46 Dose: 1 each Documented by: Omeprazole (Omeprazole 20 Mg Capsule.) 20 mg PO BID@0630,1630 [facility] Last Admin: 04/21/21 16:45 Dose: 20 mg Documented by: Pharmacy Consult (Consult Rx Perform Med Rec) 1 each MISCELLANE ONCE PRN PRN Reason: Consult order Senna (Sennosides 8.6 Mg Tablet) 17.2 mg PO BEDTIME PRN PRN Reason: Constipation Sodium Chloride (0.9 % Sodium Chloride Flush 3 Ml Syringe) 3 ml IVFLUSH QSHIFT [facility] Last Admin: 04/21/21 16:50 Dose: Not Given Documented by: Home Medications Medication Instructions Recorded Confirmed Last Taken Type blood sugar diagnostic #10 ea 03/25/20 04/02/21 Unknown History clonazepam 1 mg tablet 1 mg PO BEDTIME 03/25/20 04/20/21 04/19/21 History duloxetine 30 mg capsule,delayed 30 mg PO BEDTIME 03/25/20 04/20/21 04/19/21 History release duloxetine 60 mg capsule,delayed 60 mg PO DAILY 03/25/20 04/20/21 04/20/21 History release lancets 28 gauge #100 ea 03/25/20 04/02/21 Unknown History lisdexamfetamine 60 mg capsule 60 mg PO QAM 03/25/20 04/20/21 04/20/21 History omeprazole 20 mg capsule,delayed 20 mg PO BID 03/25/20 04/20/21 04/20/21 History release aripiprazole 10 mg tablet 15 mg PO BEDTIME 01/29/21 04/20/21 04/19/21 History benazepril 40 mg tablet 40 mg PO BEDTIME 04/20/21 04/20/21 04/19/21 History insulin degludec 200 unit/mL (3 100 unit SUBCUT BEDTIME 04/20/21 04/20/21 04/19/21 History mL) subcutaneous pen liraglutide 0.6 mg/0.1 mL (18 mg/3 1.8 mg SUBCUT BEDTIME 04/20/21 04/20/21 04/19/21 History mL) subcutaneous pen injector (Victoza 3-German) montelukast 10 mg tablet 10 mg PO BEDTIME 04/20/21 04/20/21 04/19/21 History naproxen sodium 220 mg tablet 440 mg PO Q12H 04/20/21 04/20/21 04/20/21 History norethindrone acetate 1 mg-ethinyl 1 tab PO BEDTIME 04/20/21 04/20/21 04/19/21 History estradiol 20 mcg tablet (Junel) Physical Exam Vital Signs: Vital Signs: Last Vital Signs Temp 98 F 04/21/21 19:51 Pulse 86 04/21/21 19:51 Resp 18 04/21/21 19:51 BP 144/78 H 04/21/21 19:51 Pulse Ox 98 04/21/21 19:51 Body Mass Index 43.2 Const: General: cooperative Eyes: General: appearance normal, both eyes and all related structures Resp: Effort & Inspection: normal respiratory effort Cardio: Rate: regular rate Rhythm: regular rhythm GI: Palpation (GI): Soft to palpation and nontender Skin: General skin exam: no rashes or lesions noted Results Labs CBC & Chem 7: 04/21/21 07:14 04/21/21 07:14 Labs: Short CBC 04/21/21 Range/Units 07:14 WBC 10.7 (4.8-10.8) X10*3/uL Hgb 9.0 L (12.0-16.0) g/dl Hct 30.7 L (37.0-47.0) % Plt Count 482 H (160-400) X10*3/uL BMP 04/21/21 07:14 Sodium 138 Potassium 4.0 Chloride 106 Carbon Dioxide 23 BUN 12 Creatinine 0.82 Calcium 8.8 Microbiology Microbiology Results: Microbiology 04/20/21 19:05 Blood - Venous Blood Culture - Preliminary No growth after 24 hours. 04/20/21 18:44 Blood - Venous Blood Culture - Preliminary No growth after 24 hours. 04/20/21 15:51 Urine clean catch - Clean Catch Midstream Urine Culture - Preliminary Gram negative amira Assessment and Plan (1) UTI due to extended-spectrum beta lactamase (ESBL) producing Escherichia coli: Status: Acute She has UTI with pyuria and discomfort There is a very resistant E coli She has failed two outpatient regimens. (2) UTI (urinary tract infection): Status: Acute Suggest Start with Merem Ertapenem for 14 days
[2021-04-21] MEDS: Atorvastatin Calcium 10 MG TABLET PO (21:23)
[2021-04-21] MEDS: Montelukast Sodium 10 MG TABLET PO (21:23)
[2021-04-21] MEDS: clonazePAM 1 MG TABLET PO (21:23)
[2021-04-21] MEDS: ARIPiprazole 15 MG TABLET PO (21:23)
[2021-04-21] MEDS: lisinopriL 40 MG TABLET PO (21:24)
[2021-04-22] VITALS (7 sets, daily range): BP systolic 106–161; BP diastolic 53–74; PULSE 72–86; RESP 16–18; TEMP 36–36.8; O2SAT 96–100
[2021-04-22] MEDS: Levothyroxine Sodium 88 MCG TABLET PO (06:30)
[2021-04-22] MEDS: Omeprazole 20 MG CAPSULE.DR PO ×2 (06:30→15:29)
[2021-04-22] MEDS: atenoloL 50 MG TABLET PO (07:40)
[2021-04-22] MEDS: DULoxetine HCl 60 MG CAPSULE.DR PO (07:40)
[2021-04-22] MEDS: hydroCHLOROthiazide 25 MG TABLET PO (07:40)
[2021-04-22] MEDS: Cyanocobalamin (Vitamin B-12) 1,000 MCG TABLET 1000 MCG PO (07:40)
[2021-04-22] MEDS: amLODIPine Besylate 10 MG TABLET PO (07:41)
[2021-04-22] MEDS: Fenofibrate,Micronized 134 MG CAPSULE PO (07:41)
[2021-04-22] MEDS: 0.9 % Sodium Chloride Flush 3 ML SYRINGE IVFLUSH (07:48)
[2021-04-22 08:09] LABS: Glucose, Whole Blood 146 mg/dL (60-115)
--- NOTE | 2021-04-22 10:29 | P.PNIM_ITS ---
Subjective Subjective Date of Service: 04/22/21 Interval History: seen and examined this AM feels fine, no complaints was looking forward to going home, but understands she needs to await negative blood cx at 48 hours Review of Systems no fevers or chills urinary symptoms resolved ROS otherwise negative Physical Exam Vital Signs: Vital Signs: Last Vital Signs Temp 97.4 F 04/22/21 08:00 Pulse 72 04/22/21 08:00 Resp 17 04/22/21 08:00 BP 125/60 04/22/21 08:00 Pulse Ox 100 04/22/21 08:00 Body Mass Index 43.2 Const: Other: General - no acute distress, appears comfortable Cardiovascular - regular rate and rhythm, S1-S2 Lungs - normal respiratory effort, clear to auscultation bilaterally, no wheezing Abdomen - soft, nontender, no rebound or guarding Extremities - no edema bilaterally Neuro - awake and alert, no focal deficits Objective Data Active Medications Acetaminophen (Acetaminophen 325 Mg Tablet) 650 mg PO Q6H PRN PRN Reason: Pain, Mild (Pain Scale 1-3) Amlodipine Besylate (Amlodipine Besylate 10 Mg Tablet) 10 mg PO DAILY [facility]; Protocol Last Admin: 04/22/21 07:41 Dose: 10 mg Documented by: WALKER Aripiprazole (Aripiprazole 15 Mg Tablet) 15 mg PO BEDTIME NATTY Last Admin: 04/21/21 21:23 Dose: 15 mg Documented by: REX Atenolol (Atenolol 50 Mg Tablet) 50 mg PO DAILY NATTY Last Admin: 04/22/21 07:40 Dose: 50 mg Documented by: WALKER Atorvastatin Calcium (Atorvastatin Calcium 10 Mg Tablet) 10 mg PO BEDTIME NATTY Last Admin: 04/21/21 21:23 Dose: 10 mg Documented by: REX Clonazepam (Clonazepam 1 Mg Tablet) 1 mg PO BEDTIME NATTY Last Admin: 04/21/21 21:23 Dose: 1 mg Documented by: REX Cyanocobalamin (Cyanocobalamin (Vitamin B-12) 1,000 Mcg Tablet) 1,000 mcg PO DAILY [facility] Last Admin: 04/22/21 07:40 Dose: 1,000 mcg Documented by: WALKER Dextrose (Dextrose 50 % 25 Gm/50 Ml Vial) 25 gm IVPUSH Q15M PRN; Protocol PRN Reason: per Hypoglycemia Standing Ord. Duloxetine HCl (Duloxetine Hcl 30 Mg Capsule.Dr) 30 mg PO BEDTIME [facility] Last Admin: 04/21/21 21:22 Dose: 30 mg Documented by: REX Duloxetine HCl (Duloxetine Hcl 60 Mg Capsule.) 60 mg PO DAILY [facility] Last Admin: 04/22/21 07:40 Dose: 60 mg Documented by: WALKER Enoxaparin Sodium (Enoxaparin Sodium 40 Mg/0.4 Ml Syringe) 40 mg SUBCUT Q24H [facility] Last Admin: 04/21/21 21:22 Dose: 40 mg Documented by: REX Fenofibrate (Fenofibrate,Micronized 134 Mg Capsule) 134 mg PO DAILY [facility] Last Admin: 04/22/21 07:41 Dose: 134 mg Documented by: WALKER Glucose (Glucose Gel 15 Gm Gel..Gram.) 15 gm PO Q15M PRN; Protocol PRN Reason: per Hypoglycemia Standing Ord. Hydrochlorothiazide (Hydrochlorothiazide 25 Mg Tablet) 25 mg PO DAILY [facility] Last Admin: 04/22/21 07:40 Dose: 25 mg Documented by: WALKER Dextrose/Sodium Chloride (D51/2ns) 1,000 mls @ 50 mls/hr IVCONT .Q20H [facility] Last Infusion: 04/22/21 05:12 Dose: 50 mls/hr Documented by: PAULINE Meropenem 1 gm/ Sodium (Chloride) 100 mls @ 100 mls/hr IV Q8H [facility] Last Infusion: 04/22/21 05:12 Dose: 0 mls/hr Documented by: PAULINE Insulin Glargine (Insulin Glargine,Hum.Rec.Anlog 100 Unit/Ml 10 Ml Vial) 70 unit SUBCUT BEDTIME [facility] Last Admin: 04/21/21 21:21 Dose: 70 unit Documented by: REX Insulin Human Lispro (Insulin Lispro 100 Unit/Ml 3 Ml Vial) 0 unit SUBCUT QIDACHS [facility]; Protocol Last Admin: 04/22/21 07:29 Dose: Not Given Documented by: WALKER Non-Admin Reason: No Insulin Coverage Levothyroxine Sodium (Levothyroxine Sodium 88 Mcg Tablet) 88 mcg PO DAILY@0600 [facility] Last Admin: 04/22/21 06:30 Dose: 88 mcg Documented by: PAULINE Lisinopril (Lisinopril 40 Mg Tablet) 40 mg PO BEDTIME [facility] Last Admin: 04/21/21 21:24 Dose: 40 mg Documented by: REX Melatonin (Melatonin 3 Mg Tablet) 6 mg PO BEDTIME PRN PRN Reason: Insomnia Montelukast Sodium (Montelukast Sodium 10 Mg Tablet) 10 mg PO BEDTIME [facility] Last Admin: 04/21/21 21:23 Dose: 10 mg Documented by: REX Patient Own Med ( Vyvanse 60 Mg Capsule) 1 each PO DAILY [facility] Last Admin: 04/22/21 08:05 Dose: 1 each Documented by: WALKER Patient Own Med (( Norethindrone Ac-Eth Estradiol [07/01 ()] 1-20 Mg-Mcg Tab) 1 each PO BEDTIME [facility] Last Admin: 04/21/21 21:22 Dose: 1 each Documented by: REX Omeprazole (Omeprazole 20 Mg Capsule.) 20 mg PO BID@0630,1630 [facility] Last Admin: 04/22/21 06:30 Dose: 20 mg Documented by: PAULINE Pharmacy Consult (Consult Rx Perform Med Rec) 1 each MISCELLANE ONCE PRN PRN Reason: Consult order Senna (Sennosides 8.6 Mg Tablet) 17.2 mg PO BEDTIME PRN PRN Reason: Constipation Sodium Chloride (0.9 % Sodium Chloride Flush 3 Ml Syringe) 3 ml IVFLUSH QSHIFT [facility] Last Admin: 04/22/21 07:48 Dose: 3 ml Documented by: WALKER Labs CBC & Chem 7: 04/21/21 07:14 04/21/21 07:14 Labs: Laboratory Results - last 24 hr 04/21/21 04/21/21 04/21/21 11:56 16:30 20:32 POC Glucose 133 H 180 H 242 H 04/22/21 07:58 POC Glucose 146 H Microbiology Microbiology Results: Microbiology 04/20/21 15:51 Urine Culture - Final Urine clean catch - Clean Catch Midstream Escherichia coli 04/20/21 19:05 Blood Culture - Preliminary Blood - Venous No growth after 24 hours. 04/20/21 18:44 Blood Culture - Preliminary Blood - Venous No growth after 24 hours. Assessment and Plan (1) UTI due to extended-spectrum beta lactamase (ESBL) producing Escherichia coli: Status: Acute Assessment and Plan: 46-year-old female with past medical history of hypertension, hyperlipidemia, diabetes, history of recurrent UTIs obesity who presented to the hospital after failing outpatient therapy for UTI.? Patient also grew ESBL on her urine cultures outpatient therefore admitted for treatment of ESBL UTI ESBL UTI failed multiple outpatient regimes now on Merrem, will continue will need 14 days Ertapenam upon discharge f/u blood cultures -- no growth to date; if negative, plan for discharge tomorrow DM hold orals, use sliding scale ADA diet Hypertension stable continue home medications Hyperlipidemia Continue home meds Hypothyroidism continue levothyroxine Full Code DVT pptx, Lovenox Quality Stroke Does the patient have a stroke diagnosis?: No VTE Prior VTE?: No VTE Risk Level:: Medical - moderate - high VTE Device Contraindication: N/A - Device Ordered VTE Drug Contraindication: Treatment Not Indicated
[2021-04-22] MEDS: Dextrose 5 % and 0.45 % NaCl 1,000 ML 50 ML IVCONT (11:08)
--- NOTE | 2021-04-22 11:34 | MHC.CM.PN ---
Addendum entered by Vannessa Ballard RN 04/22/21 15:44: [facility] UNABLE TO TAKE PT, [facility] SENT AND [facility] WILL ACCEPT PT. Original Note: EMR REVIEWED, PER ID AND HOSPITALIST PT WILL NEED ERTAPENEM IV X 14 DAYS, PLAN FOR MIDLINE TOMORROW 04/23/21 AND THEN D/C, CM MET W/PT TO DISCUSS PLAN AND REFERRALS PLACED TO [facility] AND [facility], PT HAS NO PREFERENCES FOR EITHER SERVICE. ABX ORDERS, ID NOTE SENT IN REFERAL TO [facility].
[2021-04-22 11:56] LABS: Glucose, Whole Blood 144 mg/dL (60-115)
[2021-04-22 16:37] LABS: Glucose, Whole Blood 191 mg/dL (60-115)
[2021-04-22] MEDS: Insulin Lispro 100 UNIT/ML 3 ML VIAL SUBCUT ×2 (16:59→20:59)
[2021-04-22 20:15] LABS: Glucose, Whole Blood 199 mg/dL (60-115)
[2021-04-22] MEDS: Montelukast Sodium 10 MG TABLET PO (20:58)
[2021-04-22] MEDS: DULoxetine HCl 30 MG CAPSULE.DR PO (20:58)
[2021-04-22] MEDS: clonazePAM 1 MG TABLET PO (20:58)
[2021-04-22] MEDS: Enoxaparin Sodium 40 MG/0.4 ML SYRINGE SUBCUT (20:58)
[2021-04-22] MEDS: Atorvastatin Calcium 10 MG TABLET PO (20:58)
[2021-04-22] MEDS: lisinopriL 40 MG TABLET PO (20:58)
[2021-04-22] MEDS: ARIPiprazole 15 MG TABLET PO (20:58)
[2021-04-22] MEDS: Insulin Glargine,Hum.rec.anlog 100 UNIT/ML 10 ML VIAL 70 UNIT SUBCUT (20:59)
[2021-04-23] MEDS: 0.9 % Sodium Chloride Flush 3 ML SYRINGE IVFLUSH ×2 (00:53→10:43)
[2021-04-23 03:14] VITALS: BP 145/65; PULSE 90; RESP 18; O2SAT 98
[2021-04-23] MEDS: Omeprazole 20 MG CAPSULE.DR PO (05:27)
[2021-04-23] MEDS: Levothyroxine Sodium 88 MCG TABLET PO (05:27)
[2021-04-23 07:48] LABS: Glucose, Whole Blood 116 mg/dL (60-115)
[2021-04-23 08:00] VITALS: BP 131/71; PULSE 80; RESP 20; TEMP 37; O2SAT 98
[2021-04-23] MEDS: Fenofibrate,Micronized 134 MG CAPSULE PO (08:23)
[2021-04-23] MEDS: amLODIPine Besylate 10 MG TABLET PO (08:23)
[2021-04-23] MEDS: DULoxetine HCl 60 MG CAPSULE.DR PO (08:23)
[2021-04-23] MEDS: Cyanocobalamin (Vitamin B-12) 1,000 MCG TABLET 1000 MCG PO (08:23)
[2021-04-23] MEDS: atenoloL 50 MG TABLET PO (08:24)
[2021-04-23] MEDS: hydroCHLOROthiazide 25 MG TABLET PO (08:24)
--- NOTE | 2021-04-23 09:46 | PM.DS ---
DS: Providers Provider Date of Service: 04/23/21 <KAMARI Hodge - Last Filed: 04/23/21 11:03> Date of admission: 04/20/21 20:02 <KAMARI Hodge - Last Filed: 04/23/21 11:03> Date of discharge: 04/23/21 <KAMARI Hodge - Last Filed: 04/23/21 11:03> Primary care physician: Jason Foreman MD <KAMARI Hodge - Last Filed: 04/23/21 11:03> Consults: 04/20/21 18:17 Consult to Infectious Diseases Routine Consulting Provider: Mago Smith Reason for consultation: ESBL e coli UTI Has provider been notified: Yes 04/20/21 20:00 Consult to Infectious Diseases Routine Consulting Provider: Mago Smith Reason for consultation: ESBL uti <KAMARI Hodge - Last Filed: 04/23/21 11:03> Attending physician on discharge: Tien Barger <KAMARI Hodge - Last Filed: 04/23/21 11:03> Discharging clinician: Aliya Montes <KAMARI Hodge - Last Filed: 04/23/21 11:03> DS: Diagnosis Discharge Diagnosis (1) UTI due to extended-spectrum beta lactamase (ESBL) producing Escherichia coli: Status: Acute <KAMARI Hodge - Last Filed: 04/23/21 11:03> DS: Summary Hospital Course Hospital Course: From H&P on day of admission 46-year-old female with a past medical history of hypertension, hyperlipidemia, diabetes, history of recurrent UTIs, obesity presented to the hospital with a chief complaint of frequency urgency and dysuria for the past 2 weeks. Patient reports that she spoke to her PCP and was on Macrobid and cefpodoxime; her symptoms were not improving and she has urine cultures done as outpatient which are growing ESBL E coli; subsequently sent to the hospital for further evaluation/IV antibiotics. Patient denies any abdominal pain. Denies any nausea vomiting diarrhea. Denies any fever chills cough. Denies any numbness tingling or focal weakness. Review of all other systems is negative except mentioned above ER course: For ER team patient lab shows mild leukocytosis; chemistry the normal limits; patient was given ertapenem; admitted to the hospital for further management UTI. Patient was admitted to the hospital for urinary frequency and dysuria after failing outpatient treatment for UTI with Macrobid and cefpodoxime. Urine culture grew ESBL positive E coli sensitive only to ertapenem. She was started on meropenem the hospital. Blood cultures have remained negative times 48 hours. Patient's symptoms have improved. A midline was placed 04/23 and she will be discharged home with [facility] to complete 14 day course of IV ertapenem. LFTs and BMP should be monitored weekly while receiving ertapenem. Attending Attestation: Late Entry 04/23/21 I have personally seen and examined the patient independently, reviewed the NPP history, exam and?MDM and agree with the assessment and plan as?written. <KAMARI Hodge - Last Filed: 04/23/21 11:03> Time Spent with Patient Time attestation: Total time spent providing and/or coordinating discharge services: <KAMARI Hodge - Last Filed: 04/23/21 11:03> Discharge coordination time: Greater than 30 minutes <KAMARI Hodge Last Filed: 04/23/21 11:03> Quality: Stroke Does the patient have a stroke diagnosis?: No <KAMARI Hodge Last Filed: 04/23/21 11:03> Physical Exam Vital Signs: Vital Signs: Last Vital Signs Temp 98.6 F 04/23/21 08:00 Pulse 80 04/23/21 08:00 Resp 20 04/23/21 08:00 BP 131/71 04/23/21 08:00 Pulse Ox 98 04/23/21 08:00 Body Mass Index 43.2 <KAMARI Hogde Last Filed: 04/23/21 11:03> Const: General: comfortable, no acute distress, alert and awake <KAMARI Hodge Last Filed: 04/23/21 11:03> Nutritional Appearance: obese <KAMARI Hodge Last Filed: 04/23/21 11:03> Orientation/consciousness: patient oriented x3 <KAMARI Hodge Last Filed: 04/23/21 11:03> HENMT: Head: Yes normocephalic and Yes atraumatic <KAMARI Hodge - Last Filed: 04/23/21 11:03> Eyes: Sclerae: sclerae normal <KAMARI Hodge - Last Filed: 04/23/21 11:03> Resp: Effort & Inspection: normal respiratory effort and no respiratory distress <KAMARI Hodge - Last Filed: 04/23/21 11:03> Cardio: Rate: regular rate <KAMARI Hodge - Last Filed: 04/23/21 11:03> Rhythm: regular rhythm <KAMARI Hodge - Last Filed: 04/23/21 11:03> GI: Palpation (GI): Soft to palpation and nontender <KAMARI Hodge - Last Filed: 04/23/21 11:03> Neuro: General: patient oriented x3 <KAMARI Hodge - Last Filed: 04/23/21 11:03> Cranial nerves: Yes CN's II-XII intact bilaterally and Yes Bilaterally intact EOM present <KAMARI Hodge - Last Filed: 04/23/21 11:03> DS: Data Data Completed and Pending Labs on day of discharge: Laboratory Results - last 24 hr 04/22/21 04/22/21 04/22/21 11:52 16:32 20:09 POC Glucose 144 H 191 H 199 H 04/23/21 07:43 POC Glucose 116 H Preliminary micro results at discharge 04/20/21 19:05 Blood Culture - Preliminary Blood - Venous No growth after 48 hours. 04/20/21 18:44 Blood Culture - Preliminary Blood - Venous No growth after 48 hours. <KAMARI Hodge - Last Filed: 04/23/21 11:03> Discharge Plan Discharge Patient Disposition: Home Health Service <KAMARI Hodge - Last Filed: 04/23/21 11:03> Discharge Diagnosis: ESBL e.coli UTI <KAMARI Hodge - Last Filed: 04/23/21 11:03> ESBL e.coli UTI <Tien Barger MD - Last Filed: 04/26/21 07:32> Referrals: Jason Foreman MD [Primary Care Provider] - 05/05/21 8:00 am (You have an appointment to establish care with Dr. Foreman on May 05 at 8 am. ) <KAMARI Hodge - Last Filed: 04/23/21 11:03> Discharge Medications: Continued atenolol-chlorthalidone 50-25 mg tablet 1 tab PO DAILY Qty: 90 RF: 3 levothyroxine 88 mcg tablet 88 mcg PO DAILY Qty: 90 RF: 3 simvastatin 20 mg tablet 20 mg PO BEDTIME Qty: 90 RF: 3 cyanocobalamin (vitamin B-12) 1,000 mcg tablet extended release 1,000 mcg PO DAILY Qty: 30 RF: 6 amlodipine 10 mg tablet 10 mg PO DAILY Qty: 90 RF: 2 metformin 1,000 mg tablet 1,000 mg PO BID Qty: 180 RF: 3 omega-3 fatty acids-fish oil 300-1,000 mg capsule See Rx Instructions PO BID 30 Days Qty: 90 RF: 3 insulin lispro [Humalog KwikPen Insulin] 100 unit/mL insulin pen See Rx Instructions subcut TID 30 Days Qty: 30 RF: 5 fenofibrate micronized 134 mg capsule 134 mg PO DAILY Qty: 90 RF: 3 montelukast 10 mg tablet 10 mg PO BEDTIME RF: 0 norethindrone ac-eth estradiol [07/01 ()] 1-20 mg-mcg tablet 1 tab PO BEDTIME RF: 0 benazepril 40 mg tablet 40 mg PO BEDTIME RF: 0 Victoza 3-German 0.6 mg/0.1 mL (18 mg/3 mL) pen injector 1.8 mg subcut BEDTIME RF: 0 insulin degludec 200 unit/mL (3 mL) insulin pen 100 unit subcut BEDTIME RF: 0 duloxetine 30 mg capsule,delayed release(DR/EC) 30 mg PO BEDTIME RF: 0 clonazepam 1 mg tablet 1 mg PO BEDTIME RF: 0 lisdexamfetamine 60 mg capsule 60 mg PO QAM RF: 0 duloxetine 60 mg capsule,delayed release(DR/EC) 60 mg PO DAILY RF: 0 (DME) lancets 28 gauge misc See Rx Instructions lancet topical QID Qty: 100 RF: 0 omeprazole 20 mg capsule,delayed release(DR/EC) 20 mg PO BID RF: 0 (DME) blood sugar diagnostic Strip See Rx Instructions strip .ROUTE .MEDSUPPLY Qty: 10 RF: 0 Discontinued naproxen sodium 220 mg Tablet 440 mg PO Q12H RF: 0 <KAMARI Hodge - Last Filed: 04/23/21 11:03> Discharge Orders: Discharge Order (Routine); Ordered 04/23/21 Ordered By: Aliya Montes <KAMARI Hodge - Last Filed: 04/23/21 11:03> Diet: advance to usual diet <KAMARI Hodge - Last Filed: 04/23/21 11:03> advance to usual diet <Tien Barger MD - Last Filed: 04/26/21 07:32> Activity on Discharge: As tolerated <KAMARI Hodge - Last Filed: 04/23/21 11:03> As tolerated <Tien Barger MD - Last Filed: 04/26/21 07:32> Stand Alone Forms: Patient Portal Discharge page <KAMARI Hodge - Last Filed: 04/23/21 11:03> Care Plan Goals: Resolution of UTI <KAMARI Hodge - Last Filed: 04/23/21 11:03> Health Concerns: ESBL + e.coli UTI <KAMARI Hodge - Last Filed: 04/23/21 11:03> Plan of Treatment: Complete course of IV ertapenem, 14 days Monitor LFTs and BMP weekly while receiving ertapenem <KAMARI Hodge - Last Filed: 04/23/21 11:03> Assessment[facility] <KAMARI Hodge - Last Filed: 04/23/21 11:03> Discharge Date/Time: 04/23/21 12:17 <KAMARI Hodge - Last Filed: 04/23/21 11:03>
--- NOTE | 2021-04-23 10:14 | HO.MIDLINE ---
PICC Line Insertion MIDLINE INSERTION Diagnosis: [UTI] Indication: [2 WEEK IV ANTIBX] Pertinent Labs: [REVIEWED] Technique: Using Sterile technique including cap,mask,gloves and drape. The RIGHT arm was prepped and draped in the usual sterile fashion of full barrier technique with CHG. Using ultrasound guidance the CEPHALIC VEIN was accessed on the second attempt by this RN. A SINGLE LUMEN NON-PASV ([id number]) MIDLINE was positioned. The procedure was performed in S-272. Ultrasound was used to document vein patency and for needle entry. A formal ultrasound picture was recorded. [employer] has released the line for use and it is currently dressed with a STATLOCK,TEGADERN, AND CHG DISC. Vertification has been performed for blood return and line patency. ERIKA BENITES WAS TIGERCONNECTED RE: FLUSHING ORDERS FOR A NON-PASV. Arm Circumference: [38CM] Equipment: [StyleQ POWERGLIDE PRO MIDLINE] Catheter Type: [SINGLE LUMEN,NON-PASV, ([id number]] Lot #: [[id number]]
--- NOTE | 2021-04-23 10:21 | MHC.CM.PN ---
PT DISCHARGING TODAY HOME W/[facility] FOR 14 DAYS IV ERTAPENEM, FAMILY FOR TRANSPORT.
[2021-04-23] MEDS: Ertapenem Sodium 1 GM in 0.9 % Sodium Chloride 50 ML IV (10:43)
--- NOTE | 2021-04-23 11:03 | W.MHC.F2F ---
Service Date Service Date: 04/23/21 Encounter Date of encounter: 04/23/21 Reasons for Services Reason for correction: administration of IV, SQ, or IM injection Overseeing Care: Jason Foreman Homebound: Leaving the home is medically contraindicated at this time without the asist of a device and/or another person due th the listed conditions above and below. Reason homebound: other Certification: Based on the above findings, I certify that this patient is confined to the home and needs intermittent correction care, physical therapy and/or speech therapy, or continues to need occupational therapy. The patient is under my care, and I have initiated the establishment of the plan of care. The patient will be followed by a physician who will periodically review the plan of care.
[2021-04-23 11:12] LABS: Glucose, Whole Blood 140 mg/dL (60-115)
[2021-04-23] MEDS: Heparin Sodium,Porcine Flush 50 UNITS, 0.9 % Sodium Chloride Flush 5 ML IVFLUSH (11:21)
--- NOTE | 2021-04-24 08:22 | MHC.CM.PN ---
Received voicemail from patient requesting [facility] and IV infusion info. T/W attempted to reach patient via telephone at [phone]. Left voicemail explaining [facility] will be agency that can be reached at [phone] and that [facility] will be the IV infusion company. Carmen of [facility] can be reached via telephone at [phone].
== END 2021-04-23 12:17 | disposition home health service (06) | DRG 463 ==
LOC: HO.ED 20:01 → HO.EDOVER 20:07 → HO.S3 04-21 07:29
PROVIDERS: Internal Medicine; Admitting Provider Hospitalist; Emergency Provider Internal Medicine; PCP Internal Medicine; Visit Provider Physician Assistant Medical
DX: N39.0 Urinary tract infection, site not specified (principal); E11.65 Type 2 diabetes mellitus with hyperglycemia; B96.20 Unspecified Escherichia coli [E. coli] as the cause of diseases classified elsewhere; E03.9 Hypothyroidism, unspecified; I10 Essential (primary) hypertension; Z16.12 Extended spectrum beta lactamase (ESBL) resistance; Z20.822 Contact with and (suspected) exposure to COVID-19; Z88.2 Allergy status to sulfonamides; Z79.3 Long term (current) use of hormonal contraceptives; Z79.4 Long term (current) use of insulin; Z79.890 Hormone replacement therapy; Z79.899 Other long term (current) drug therapy
CPT/HCPCS: 36410; 36415; 76775; 80048; 80053; 81001; 82947; 83605; 85025; 87040; 87086; 87088; 87186; 87635; 96361; 96374; 99285; J1335; J1642; J1650; J2185

== ENCOUNTER 2021-05-05 08:43 | Outpatient (REF) | payer OTHER, SELFPAY ==
[2021-05-05 09:43] LABS: Hematocrit 36.2 % (37.0-47.0); Hemoglobin 10.6 g/dl (12.0-16.0); Mean Corpuscular HGB Conc 29.3 g/dl (31.0-35.0); Mean Corpuscular Hemoglobin 21.5 pg (27.0-33.0); Mean Corpuscular Volume 73.4 fL (80.0-98.0); Mean Platelet Volume 10.1 fL (9.4-12.3); Platelet Count 606 X10*3/uL (160-400); Red Blood Count 4.93 X10*6/uL (4.20-5.50); Red Cell Distribution Width 16.4 % (11.0-16.0); White Blood Count 12.5 X10*3/uL (4.8-10.8)
[2021-05-05 10:02] LABS: Alanine Aminotransferase 18 U/L (0-31); Albumin Level 4.3 g/dL (3.5-5.0); Alkaline Phosphatase 121 U/L (39-117); Anion Gap 17 (12-20); Aspartate Amino Transferase 18 U/L (5-31); Bilirubin Direct < 0.2 mg/dL (0.0-0.5); Bilirubin Total 0.2 mg/dL (0.0-1.0); Blood Urea Nitrogen 14 mg/dL (9-16); Calcium 9.5 mg/dL (8.4-10.2); Carbon Dioxide 22 mmol/L (22-29); Chloride 103 mmol/L (96-108); Estimated Glomerular Filt Rate > 60; Glucose Random 195 mg/dL (60-115); Potassium 4.8 mmol/L (3.3-5.1); Sodium 137 mmol/L (135-145)
[2021-05-05 10:23] LABS: Thyroid Stimulating Hormone 1.35 uIU/mL (0.32-4.0)
[2021-05-05 11:06] LABS: Erythrocyte Sedimentation Rate 39 MM/HR (0-20)
== END 2021-05-05 08:44 | disposition home or self-care (01) ==
LOC: HO.LAB 08:43
PROVIDERS: PCP Internal Medicine; Visit Provider Internal Medicine
DX: N39.0 Urinary tract infection, site not specified (principal); B96.29 Other Escherichia coli [E. coli] as the cause of diseases classified elsewhere; Z16.12 Extended spectrum beta lactamase (ESBL) resistance
CPT/HCPCS: 36415; 80048; 80076; 84443; 85027; 85652

== ENCOUNTER 2021-05-12 16:40 | Outpatient (REF) | payer OTHER, SELFPAY | END 2021-05-12 16:41 | disposition home or self-care (01) | LOC: HO.LNP 16:40 | PROVIDERS: Visit Provider Physician Assistant Medical | DX: B37.0 Candidal stomatitis (principal) | CPT/HCPCS: 87071; 87205 ==

== ENCOUNTER → 2021-05-18 08:44 | Outpatient (BNVA) | payer OTHER, SELFPAY | PROVIDERS: PCP Internal Medicine; Visit Provider Nurse Practitioner Gerontology | DX: E11.65 Type 2 diabetes mellitus with hyperglycemia (principal); E66.01 Morbid (severe) obesity due to excess calories; E78.5 Hyperlipidemia, unspecified; E78.1 Pure hyperglyceridemia; I10 Essential (primary) hypertension; Z79.4 Long term (current) use of insulin; Z68.41 Body mass index [BMI] 40.0-44.9, adult | CPT/HCPCS: 82947; 83036; 99212 ==

== ENCOUNTER 2021-07-19 08:22 | Outpatient (REF) | payer OTHER, SELFPAY ==
[2021-07-19 14:25] LABS: CT PCR NOT DETECTED (Not Detect.); NG PCR NOT DETECTED (Not Detect.)
[2021-07-20 09:04] LABS: BV Int Neg Control Negative (Negative); BV Int Pos Control Positive (Positive)
[2021-07-22 20:12] LABS: HPV 16 RNA NOT DETECTED (NOT DETECTED); HPV mRNA E6/E7 rflx Detected (Not Detected)
== END 2021-07-19 08:23 | disposition home or self-care (01) ==
LOC: HO.LAB 08:22
PROVIDERS: PCP Internal Medicine; Visit Provider Advanced Practice Midwife
DX: Z01.411 Encounter for gynecological examination (general) (routine) with abnormal findings (principal); Z11.51 Encounter for screening for human papillomavirus (HPV); N92.1 Excessive and frequent menstruation with irregular cycle; Z20.2 Contact with and (suspected) exposure to infections with a predominantly sexual mode of transmission; Z87.42 Personal history of other diseases of the female genital tract
CPT/HCPCS: 87480; 87491; 87510; 87591; 87624; 87625; 87660; 88142

== ENCOUNTER 2021-08-10 09:34 | Outpatient (REF) | payer OTHER, SELFPAY ==
--- NOTE | ~2021-08-10 | US_ITS ---
EXAMINATION: US PELVIS CLINICAL INFORMATION: Excessive and frequent menstruation. COMPARISON: None TECHNIQUE: Ultrasound of the pelvis is performed using both transabdominal and transvaginal transducers along with Doppler. Transvaginal imaging is performed due to inadequate visualization transabdominally. FINDINGS: Limited exam due to patient's body habitus. Uterus: The uterus is anteverted, anteflexed and measures 6.5 cm in length, 2.0 cm in AP and 3.6 cm in transverse dimension. The double wall endometrial thickness is 0.8 cm. The uterus is smooth in contour and has normal myometrial echogenicity. No visible fibroid. There are small nabothian cysts. Adnexa: Both ovaries are visualized. There is normal color flow to the adnexa. There is no ovarian torsion. There is no pelvic ascites or fluid collection. Right ovary measures 2.7 x 2.5 x 2.9 cm, volume 12.7 mL. There is anechoic cyst measuring 2.3 x 2.0 x 2.4 cm. Left ovary is not visualized. There is no free fluid in the cul-de-sac. US/US pelvic and transvaginal IMPRESSION: Small nabothian cysts in the cervix. The uterus is unremarkable. Small right ovarian cyst.
== END 2021-08-10 09:35 | disposition home or self-care (01) ==
LOC: HO.US 09:34
PROVIDERS: Visit Provider Advanced Practice Midwife
DX: N92.1 Excessive and frequent menstruation with irregular cycle (principal)
CPT/HCPCS: 76830; 76856

== ENCOUNTER → 2021-08-23 11:04 | Outpatient (BNVA) | payer OTHER, SELFPAY | PROVIDERS: PCP Internal Medicine; Visit Provider Advanced Practice Midwife | DX: N92.1 Excessive and frequent menstruation with irregular cycle (principal); Z71.2 Person consulting for explanation of examination or test findings; Z30.41 Encounter for surveillance of contraceptive pills ==

== ENCOUNTER 2021-08-27 07:45 | Outpatient (REF) | payer OTHER, SELFPAY | END 2021-08-27 07:46 | disposition home or self-care (01) | LOC: HO.MDS 07:45 | PROVIDERS: PCP Internal Medicine; Visit Provider Internal Medicine | DX: D50.9 Iron deficiency anemia, unspecified (principal) | CPT/HCPCS: 96365; 96366; J1200; J1750; Q0163 ==

== ENCOUNTER 2022-01-03 11:15 | Outpatient (REF) | payer OTHER, SELFPAY ==
--- NOTE | ~2022-01-03 | XR_ITS ---
EXAMINATION: XR ANKLE, RIGHT CLINICAL INFORMATION: Right ankle pain. COMPARISON: None TECHNIQUE: AP, lateral, and mortise views of the right ankle. FINDINGS: The ankle joint and mortise are intact. There is no overt fracture or dislocation. The joint spaces are unremarkable. The tarsal bones are normally aligned. Minimal plantar and retrocalcaneal spurs. Moderate soft tissue swelling more pronounced laterally. XR/XR ankle RT min 3V IMPRESSION: Moderate soft tissue swelling surrounding the ankle, more pronounced laterally without definitive acute underlying osseous abnormality.
== END 2022-01-03 11:16 | disposition home or self-care (01) ==
LOC: HO.HMGCX 11:15
PROVIDERS: PCP Internal Medicine; Visit Provider Physician Assistant
DX: M25.571 Pain in right ankle and joints of right foot (principal)
CPT/HCPCS: 73610

== ENCOUNTER 2022-02-04 14:09 | Outpatient (REF) | payer OTHER, SELFPAY ==
--- NOTE | ~2022-02-04 | US_ITS ---
EXAMINATION: US VENOUS ULTRASOUND WITH DOPPLER LOWER EXTREMITY, RIGHT CLINICAL INFORMATION: Right calf pain. Question DVT. COMPARISON: None TECHNIQUE: Ultrasound of the deep veins is performed from the hip to the calf with compression sonography and color and pulse Doppler assessment. Spectral analysis with color-flow imaging is performed. FINDINGS: There is normal venous compression and respiratory variation and augmented flow. The visualized common femoral vein, superficial femoral vein, profunda femoral vein, popliteal vein, and the trifurcation region shows no evidence of deep venous thrombosis. There is no significant popliteal fossa cyst. If the patient's symptoms persist, followup ultrasound in 5 days 7 days might be of value to exclude proximal propagation from a non-visualized calf vein. US/US venous duplex LE RT IMPRESSION: No DVT demonstrated in the right lower extremity.
== END 2022-02-04 14:10 | disposition home or self-care (01) ==
LOC: HO.HMGCX 14:09
PROVIDERS: PCP Internal Medicine
DX: M79.661 Pain in right lower leg (principal)
CPT/HCPCS: 93971

== ENCOUNTER 2022-02-23 06:10 | Outpatient (REF) | payer OTHER, SELFPAY ==
[2022-02-23 07:08] LABS: Estimated Average Glucose 154 mg/dL
[2022-02-23 07:13] LABS: Alanine Aminotransferase 37 U/L (0-31); Alkaline Phosphatase 96 U/L (39-117); Anion Gap 17 (12-20); Aspartate Amino Transferase 38 U/L (5-31); Bilirubin Total 0.2 mg/dL (0.0-1.0); Blood Urea Nitrogen 12 mg/dL (9-16); Calcium 8.7 mg/dL (8.4-10.2); Carbon Dioxide 23 mmol/L (22-29); Chloride 101 mmol/L (96-108); Cholesterol 175 mg/dL; Estimated Glomerular Filt Rate > 60; Glucose Fasting 173 mg/dL (60-99); HDL Cholesterol 32 mg/dL; LDL Cholesterol Calculated 88 mg/dl; Potassium 4.5 mmol/L (3.3-5.1); Sodium 136 mmol/L (135-145); Triglycerides 275 mg/dL
[2022-02-23 07:34] LABS: Vitamin D 25-OH Total 47.8 ng/mL (>30)
[2022-02-23 07:46] LABS: Creatinine Urine 72.06 mg/dL; Microalbumin Urine < 5.0 mg/L
[2022-02-23 07:46] LABS: Erythrocyte Sedimentation Rate 14 MM/HR (0-20)
[2022-02-25 05:21] LABS: LDL Cholesterol Direct 111 mg/dL (<100)
== END 2022-02-23 06:11 | disposition home or self-care (01) ==
LOC: HO.LAB 06:10
PROVIDERS: Nurse Practitioner Gerontology; PCP Internal Medicine; Visit Provider Internal Medicine
DX: E11.65 Type 2 diabetes mellitus with hyperglycemia (principal); E55.9 Vitamin D deficiency, unspecified; D47.3 Essential (hemorrhagic) thrombocythemia; Z79.4 Long term (current) use of insulin
CPT/HCPCS: 36415; 80053; 80061; 82043; 82306; 83036; 83721; 85652

== ENCOUNTER → 2022-03-10 13:16 | Outpatient (BNVA) | payer OTHER, SELFPAY | PROVIDERS: PCP Internal Medicine; Visit Provider Physician Assistant | DX: S93.401A Sprain of unspecified ligament of right ankle, initial encounter (principal) | CPT/HCPCS: 99212 ==

== ENCOUNTER → 2022-10-04 10:00 | Outpatient (BNV) | payer OTHER, SELFPAY | PROVIDERS: Visit Provider Psychiatry & Neurology Psychiatry | DX: F33.2 Major depressive disorder, recurrent severe without psychotic features (principal); F41.1 Generalized anxiety disorder | CPT/HCPCS: 90867; 90868 ==